=== PATIENT | male | born 1950 | race Caucasian/White ===

== ENCOUNTER → 2018-01-01 08:11 | Outpatient (CLI) | payer MEDICARE, OTHER, SELFPAY ==
[2018-01-01 09:21] LABS: Cholesterol 109 mg/dL (140-199); HDL Cholesterol 39 mg/dL (40-60); LDL Cholesterol Calculated 61 mg/dL (<100); Triglycerides 44 mg/dL (35-150)
== END ==
PROVIDERS: PCP Family Medicine; Visit Provider Family Medicine
DX: E78.00 Pure hypercholesterolemia, unspecified (principal)
CPT/HCPCS: 36415; 80061

== ENCOUNTER 2018-02-13 08:43 | Day surgery (SDC) | payer MEDICARE, OTHER, SELFPAY ==
[2018-02-13] VITALS (10 sets, daily range): BP systolic 99–125; BP diastolic 61–76; PULSE 52–80; RESP 12–16; TEMP 36–36.4; O2SAT 92–98; BMI 23.1
--- NOTE | 2018-02-13 | PATH_ITS ---
[facility] Accession Number: [id number] . 01 Material submitted: . AT CECUM . 02 Diagnosis: Cecum, Biopsies: Multiple fragments of tubulovillous adenoma. No evidence of malignancy or high-grade dysplasia. MRV/02/14/2018 . 02 Electronically signed: . Namrata Gutierrez MD, Pathologist NPI- [id number] . 01 Gross description: . Received in one formalin-filled container labeled with the patient's name and labeled at cecum, are multiple less than 0.1 cm to 0.3 cm portions of tissue, which are filtered, wrapped, and entirely submitted in one cassette. ([id number]) /FRR . 02 Pathologist provided ICD-10: D12.0 . 02 CPT . 812689 Performed at: 01 [facility] [address] [id number] MD Derrek Fitzgerald MD Phone: [phone] Performed at: 02 [facility] [address] [place] [id number] MD Hi Lantigua MD Phone: [phone]
--- NOTE | 2018-02-13 10:29 | PM.HP.1 ---
History of Present Illness Date Patient Seen: 02/13/18 Time Patient Seen: 10:29 Chief complaint: colonoscopy [id number] Narrative: 67-year-old gentleman here for his 1st screening colonoscopy. He denies any problems or symptoms related to the function of his GI tract. Patient History Medical History Prostate cancer (Acute) Family & Social History Family History: Reviewed 02/13/18 by Elisa Acosta MD Social History: household members spouse Tobacco & Substance use: Smoking Status Former smoker alcohol intake current Meds Home Medications Medication Instructions Recorded Confirmed Type aspirin 81 mg PO QDAY #0 04/09/17 02/13/18 History multivitamin [Multiple Vitamins] 1 tab PO QDAY #0 04/09/17 02/13/18 History ibuprofen [Advil] 200 mg PO PRN PRN #0 09/26/17 02/13/18 History simvastatin 40 mg PO HS #90 tab 10/02/17 02/13/18 Rx shingrix 0.5 ml IM ONCE #1 dose 12/26/17 12/26/17 Rx tamsulosin 0.4 mg capsule 0.8 mg PO QPM #0 cap 12/26/17 02/13/18 History Allergies Allergy/AdvReac Type Severity Reaction Status Date / Time No Known Allergies Allergy Uncoded 02/13/18 09:26 Review of Systems Review of Systems All systems reviewed & are unremarkable except as noted in HPI and below Exam Vital Signs (past 8 hours): - 02/13/18 09:12 Temperature 97.6 F Pulse Rate 80 Respiratory Rate 15 Blood Pressure 125/73 H Pulse Oximetry 98 Oxygen Delivery Method Room Air Narrative Exam Narrative: Very pleasant well-nourished well-developed gentleman in no distress HEENT: Normocephalic and atraumatic, pupils equal round reactive to light accommodation with anicteric sclera Lungs: Clear to auscultation bilaterally Heart: Regular rate and rhythm without murmur rub or gallop Abdomen: Soft, nontender, active bowel sounds Extremities: Warm and well perfused without edema Assessment & Plan Plan: Assessment/Plan Narrative: Very pleasant and generally healthy gentleman here for screening colonoscopy. We discussed the risks and benefits of the procedure the patient expressed a desire to continue into completed today.
[2018-02-13] MEDS: SODIUM CHLORIDE 0.9% 1,000 ML 200 ML IV (11:18)
--- NOTE | 2018-02-13 11:25 | PM.OP.1 ---
Operative Date/Time/Diagnoses Date of procedure: 02/13/18 Time of procedure: 11:25 Procedure & Clinicians Procedure: Colonoscopy to the cecum with polypectomy x2 Same procedure as scheduled: Yes Indications: No prior colonoscopy Surgeon: Elisa Acosta Click Yes if Unassisted: Yes Anesthesia Type: Sedation (Versed 10 mg; fentanyl 350 mcg) Operative Notes Findings: 1. Adequate prep 2. 1.5 cm flat polyp in the floor of the cecum-removed with snare and cautery and marked with Carole ink 3. 0.5 cm flat polyp just distal to the ileocecal valve. Removed with snare and cautery and submitted for pathology 4. Farr diverticulosis with large and small tics and false passages throughout the colon. The most severe disease is in the region of the sigmoid colon but there is significant disease throughout the colon 5. Grade 1-2 internal hemorrhoids Closure Type: not applicable Specimen(s): other (Two polyps removed with snare and cautery and retained for pathology) Procedure in detail: After obtaining informed consent, the patient was brought to the GI suite and placed in the left lateral decubitus position on the examination table. After placement of appropriate monitors, the patient was given incremental doses of Versed and Fentanyl until an appropriate level of sedation was achieved. A time out was held per SCOAP protocol. A digital rectal examination was performed and did not reveal any masses or obstructing lesions. The colonoscope was gently passed into the patient's anus and the entire colon navigated to the level of the cecum with minimal difficulty. Once in the cecum, the scope was withdrawn being sure to go before and beyond all mucosal folds and prominences and get an excellent examination. The findings are noted above. At the level of the rectal vault, the scope was retroflexed and the internal anal canal was examined. The scope was straightened and air aspirated from the colon. The instrument was removed from the patient's body and the procedure was concluded. The patient was allowed to awaken from sedation without difficulty and taken to the post-anesthesia care unit in good condition. Total sedation time 36 min Total withdrawal time 17 min Complications: none Condition: stable Disposition: PACU Plan for aftercare: 1. Discharge to home 2. We will contact you with pathology results 3. Plan for repeat colonoscopy in 6 months to assess for regrowth in the cecum.
[2018-02-13] MEDS: fentaNYL 250 MCG/5 ML INJ IV (11:35)
[2018-02-13] MEDS: MIDAZOLAM 5 MG/5 ML VIAL IV (11:36)
--- NOTE | 2018-02-13 13:03 | SUR.PHASEII ---
pt remains sleepy, at bedside, pt tolerating sips of coffee and juice
--- NOTE | 2018-02-13 14:34 | SUR.PHASEII ---
Patient awake and desiring discharge. Denies pain or difficulties. O2 sat 97%. Home at 1428.
== END 2018-02-13 14:28 | disposition home or self-care (01) ==
LOC: ENDO 08:44
PROVIDERS: PCP Family Medicine; Visit Provider Surgery
PROC: 0DJD8ZZ Inspection of Lower Intestinal Tract, Via Natural or Artificial Opening Endoscopic (ICD-10-PCS; CPT 45378; principal; 2018-02-13 09:45)
DX: Z12.11 Encounter for screening for malignant neoplasm of colon (principal); Z87.891 Personal history of nicotine dependence; K57.30 Diverticulosis of large intestine without perforation or abscess without bleeding; K64.1 Second degree hemorrhoids; D12.0 Benign neoplasm of cecum
CPT/HCPCS: 45385; 88305; 99152; 99153; J2250; J3010

== ENCOUNTER → 2018-04-23 09:41 | Outpatient (CLI) | payer MEDICARE, OTHER, SELFPAY ==
[2018-04-23 12:21] LABS: Prostate Specific Antigen 0.596 ng/mL (0.10-4.00)
== END ==
PROVIDERS: Visit Provider Radiology Radiation Oncology
DX: C61 Malignant neoplasm of prostate (principal)
CPT/HCPCS: 36415; 84153

== ENCOUNTER 2018-10-14 13:25 | Day surgery (SDC) | payer MEDICARE, OTHER, SELFPAY ==
--- NOTE | 2018-10-14 | PATH_ITS ---
[facility] Accession Number: [id number] . 01 Material submitted: . PART A: CECAL POLYP PART B: POLYP @100CM . 02 Diagnosis: A. Cecal Polyp: Tubular adenoma; negative for high-grade dysplasia. . B. Polyp at 100 cm: Tubular adenoma; negative for high-grade dysplasia. Please see comment. MRV/10/16/2018 . 02 Comment: Part B: There is a focus of adenomatous change / low-grade dysplasia / tubular adenoma present in an inflammatory-type polyp. No high-grade dysplasia is identified. . 02 Electronically signed: . Kristy Gutierrez MD, Pathologist NPI- [id number] . 01 Gross description: . Part A: CECAL POLYP: Received in formalin is 1 fragment(s) of dempsey, soft tissue measuring 0.6 x 0.3 x 0.2 cm submitted entirely in 1 cassette(s) Part B: POLYP @100CM: Received in formalin is 1 fragment(s) of dempsey, soft tissue measuring 1.4 x 0.6 x 0.4 cm which is inked, bisected and submitted entirely in 1 cassette(s) /CKI /CKI . 02 Pathologist provided ICD-10: K63.5 . 02 CPT . 181424, [id number] Performed at: 01 [facility] [address], [place], [place] [id number] MD Derrek Fitzgerald MD Phone: [phone] Performed at: 02 [facility] [address] [place], [place] [id number] MD Namrata Gutierrez MD Phone: [phone]
[2018-10-14] MEDS: SODIUM CHLORIDE 0.9% 1,000 ML 100 ML IV (13:44)
[2018-10-14 13:45] VITALS: BP 115/72; PULSE 71; RESP 16; TEMP 36; O2SAT 97; BMI 25.2
--- NOTE | 2018-10-14 14:58 | PM.HP.1 ---
History of Present Illness Date Patient Seen: 10/14/18 Time Patient Seen: 14:58 Chief complaint: colonoscopy [id number] Narrative: Mr. Bains is a pleasant 68-year-old gentleman who is well known to me from prior visits. I met him approximately 6 months ago at which time he had a colonoscopy. At that time he was noted to have a 1.5 cm tubulovillous adenoma in the floor of the cecum and a 2nd 5 mm lesion just distal to that 1. These were removed and marked with Carole ink. Pathology finally revealed tubulovillous adenoma without dysplasia or malignancy. He presents here today for surveillance colonoscopy to re-evaluate the size of excision. He denies any new problems or symptoms related to the function of his GI tract. He does report that he has changed his eating habits and lifestyle significantly to a more healthy version of his habits. Patient History Medical History Asthma (Acute) Constipation (Acute) Enlarged prostate (Acute) GERD (gastroesophageal reflux disease) (Acute) Hyperlipidemia (Acute) Impaired hearing (Acute) Impaired vision (Acute) Prostate cancer (Acute) Family History Mother Hypertension Heart disease Father Heart disease Son Heart disease Social History marital status: household members: spouse Smoking Status: Former smoker alcohol intake: current Family & Social History Family History Mother Hypertension Heart disease Father Heart disease Son Heart disease Social History: household members spouse Tobacco & Substance use: Smoking Status Former smoker alcohol intake current Meds Home Medications Medication Instructions Recorded Confirmed Type multivitamin [Multiple Vitamins] 1 tab PO QDAY #0 04/09/17 10/14/18 History ibuprofen [Advil] 200 mg PO PRN PRN #0 09/26/17 10/14/18 History simvastatin 40 mg PO HS #90 tab 10/02/17 10/14/18 Rx shingrix 0.5 ml IM ONCE #1 dose 12/26/17 10/07/18 Rx tamsulosin 0.4 mg capsule 0.8 mg PO QPM #0 cap 12/26/17 10/14/18 History cephalexin 500 mg capsule 500 mg PO BID 10 Days #20 cap 10/07/18 10/14/18 Rx Allergies Allergy/AdvReac Type Severity Reaction Status Date / Time No Known Allergies Allergy Uncoded 10/14/18 13:45 Review of Systems Review of Systems All systems reviewed & are unremarkable except as noted in HPI and below Exam Vital Signs (past 8 hours): - 10/14/18 13:45 Temperature 96.8 F L Pulse Rate 71 Respiratory Rate 16 Blood Pressure 115/72 Pulse Oximetry 97 Oxygen Delivery Method Room Air Narrative Exam Narrative: Pleasant and healthy-appearing gentleman in no distress HEENT: Normocephalic and atraumatic, pupils equal round react light accommodation with anicteric sclera Lungs: Clear to auscultation bilaterally Heart: Regular rate and rhythm without murmur rub or gallop Abdomen: Soft, nontender, active bowel sounds Extremities: Warm and well perfused and without edema Assessment & Plan Assessment & Plan narrative: Very pleasant 68-year-old gentleman here for surveillance colonoscopy. We discussed the risks and benefits of the procedure the patient expressed a desire to complete it today.
[2018-10-14] MEDS: MIDAZOLAM 5 MG/5 ML VIAL IV (15:05)
[2018-10-14] MEDS: fentaNYL 250 MCG/5 ML INJ IV (15:06)
--- NOTE | 2018-10-14 15:31 | PM.OP.1 ---
Operative Date/Time/Diagnoses Date of procedure: 10/14/18 Time of procedure: 15:31 Pre-op diagnosis: Personal history of large tubulovillous adenoma Post-op diagnosis: same Procedure & Clinicians Procedure: Colonoscopy to the cecum with polypectomy x2 Same procedure as scheduled: Yes Indications: Last colonoscopy 6 months ago with removal of a large flat tubulovillous adenoma Surgeon: Elisa Acosta Anesthesia Type: Sedation (Versed 5 mg; fentanyl 150 micro g) Operative Notes Findings: 1. Excellent prep 2. No regrowth of the polyp in the floor of the cecum. The tattoo was identified. 3. 1 mm, diminutive polypoid lesion in the floor of the cecum. Removed with cold forceps and retained for pathology 4. 2 cm long tubular appearing polyp at 100 cm from the anal verge. Very narrow stalk of only 3 or 4 mm. Removed with snare and cautery and retained for pathology. this polyp is in the area of the colon with a particularly large number of large and deep diverticula. 5. Farr diverticulosis as mentioned on previous exam 6. Grade 1-2 internal hemorrhoids Closure Type: not applicable Specimen(s): none sent (See list above) Estimated Blood Loss (mL): 1 Procedure in detail: After obtaining informed consent, the patient was brought to the GI suite and placed in the left lateral decubitus position on the examination table. After placement of appropriate monitors, the patient was given incremental doses of Versed and Fentanyl until an appropriate level of sedation was achieved. A time out was held per SCOAP protocol. A digital rectal examination was performed and did not reveal any masses or obstructing lesions. The colonoscope was gently passed into the patient's anus and the entire colon navigated to the level of the cecum with minimal difficulty. Once in the cecum, the scope was withdrawn being sure to go before and beyond all mucosal folds and prominences and get an excellent examination. The findings are noted above. at 100 cm from the anal verge we encountered a long narrow portion of tissue. With the tip of the tissue was noted to be tucked into a diverticulum and the base between 2 narrow diverticular openings. This was grasped and removed with snare and cautery. It was placed in a Yao net and removed from the colon and retained for pathology. At the level of the rectal vault, the scope was retroflexed and the internal anal canal was examined. The scope was straightened and air aspirated from the colon. The instrument was removed from the patient's body and the procedure was concluded. Total sedation time was 29 minutes Total withdrawal time was 13 minutes The patient was allowed to awaken from sedation without difficulty and taken to the post-anesthesia care unit in good condition. Complications: none Condition: stable Disposition: PACU Plan for aftercare: 1. Discharge to home 2. Plan for next colonoscopy in 1 year 3. We will contact you with pathology results and any additional recommendations
[2018-10-14 15:35] VITALS: BP 106/58; PULSE 65; RESP 16; TEMP 37; O2SAT 94
[2018-10-14 15:40] VITALS: BP 111/61; PULSE 66; RESP 16; TEMP 36.9; O2SAT 92
[2018-10-14 15:45] VITALS: BP 112/64; PULSE 69; RESP 14; TEMP 36.4; O2SAT 96
[2018-10-14 15:46] VITALS: BP 105/64; PULSE 66; RESP 15; TEMP 36.4; O2SAT 96
--- NOTE | 2018-10-14 16:11 | SUR.PHASEII ---
1550 Tolerating PO well, wants to go home. IV dc'd; clothes given.
== END 2018-10-14 16:05 | disposition home or self-care (01) ==
PROVIDERS: PCP Student in an Organized Health Care Education/Training Program; Visit Provider Surgery
PROC: 0DJD8ZZ Inspection of Lower Intestinal Tract, Via Natural or Artificial Opening Endoscopic (ICD-10-PCS; CPT 45378; principal; 2018-10-14 15:00)
DX: Z86.010 Personal history of colon polyps (principal); K57.30 Diverticulosis of large intestine without perforation or abscess without bleeding; K64.1 Second degree hemorrhoids; J45.909 Unspecified asthma, uncomplicated; E78.5 Hyperlipidemia, unspecified; Z85.46 Personal history of malignant neoplasm of prostate; K63.5 Polyp of colon
CPT/HCPCS: 45385; 45380; 88305; 99152; 99153; J2250; J3010

== ENCOUNTER → 2018-10-21 11:01 | Outpatient (CLI) | payer MEDICARE, OTHER, SELFPAY ==
[2018-10-21 15:17] LABS: Prostate Specific Antigen 0.362 ng/mL (0.10-4.00)
== END ==
PROVIDERS: PCP Student in an Organized Health Care Education/Training Program; Visit Provider Urology
DX: Z85.46 Personal history of malignant neoplasm of prostate (principal)
CPT/HCPCS: 36415; 84153

== ENCOUNTER → 2019-05-21 10:08 | Outpatient (CLI) | payer MEDICARE, OTHER, SELFPAY ==
[2019-05-21 11:37] LABS: Prostate Specific Antigen 0.485 ng/mL (0.10-4.00)
== END ==
PROVIDERS: PCP Student in an Organized Health Care Education/Training Program; Visit Provider Student in an Organized Health Care Education/Training Program
DX: Z85.46 Personal history of malignant neoplasm of prostate (principal)
CPT/HCPCS: 36415; 84153

== ENCOUNTER → 2019-12-10 09:37 | Outpatient (CLI) | payer MEDICARE, OTHER, SELFPAY ==
[2019-12-10 13:08] LABS: Prostate Specific Antigen Scrn 0.328 ng/mL (0.1-4.0)
== END ==
PROVIDERS: PCP Student in an Organized Health Care Education/Training Program; Referring Provider Student in an Organized Health Care Education/Training Program; Visit Provider Student in an Organized Health Care Education/Training Program
DX: Z12.5 Encounter for screening for malignant neoplasm of prostate (principal); Z85.46 Personal history of malignant neoplasm of prostate
CPT/HCPCS: 36415; G0103

== ENCOUNTER → 2019-12-28 15:18 | Outpatient (CLI) | payer MEDICARE, OTHER, SELFPAY ==
[2019-12-29 08:49] LABS: COVID19 Sendout Not Detected (Not Detect)
== END ==
PROVIDERS: PCP Student in an Organized Health Care Education/Training Program; Visit Provider Physician Assistant
DX: Z01.812 Encounter for preprocedural laboratory examination (principal)
CPT/HCPCS: 87635

== ENCOUNTER 2019-12-31 09:43 | Day surgery (SDC) | payer MEDICARE, OTHER, SELFPAY ==
--- NOTE | 2019-12-31 | PATH_ITS ---
[facility] Accession Number: [id number] . 01 Material submitted: . PART A: colon - COLON POLYP AT 40 CM PART B: colon - ASCENDING COLON POLYP . 02 Diagnosis: A. Colon, Polyp at 40 cm, Biopsy: Tubular adenoma. . B. Ascending Colon, Polyp, Biopsy: Tubular adenoma. MRV 01/01/2020 1013 Local . 02 Electronically signed: . Namrata Gutierrez MD, Pathologist NPI- [id number] . 01 Gross description: . Part A: COLON POLYP AT 40 CM: Received in formalin are 2 fragment(s) of dempsey, soft tissue measuring 0.1 x 0.1 x 0.1 cm to 0.3 x 0.1 x 0.1 cm submitted entirely in 1 cassette(s) Part B: ASCENDING COLON POLYP: Received in formalin are 2 fragment(s) of dempsey, soft tissue measuring 0.1 x 0.1 x 0.1 cm to 0.6 x 0.6 x 0.5 cm submitted entirely in 1 cassette(s) /SY 12/31/20192045 Local . 02 Pathologist provided ICD-10: D12.6, D12.2 . 02 CPT . 092236, 680691 Performed at: [address] [facility] [address], [place], [place] [id number] MD Derrek Fitzgearld MD Phone: [phone] Performed at: 02 [facility] [address] [place], [place] [id number] MD Namrata Gutierrez MD Phone: [phone]
[2019-12-31 10:06] VITALS: BP 111/71; PULSE 76; RESP 16; TEMP 36.4; O2SAT 98; BMI 23.3
[2019-12-31] MEDS: LACTATED RINGERS 1,000 ML 200 ML IV (10:11)
[2019-12-31] MEDS: fentaNYL 250 MCG/5 ML INJ IV (10:52)
[2019-12-31] MEDS: MIDAZOLAM 5 MG/5 ML VIAL IV (10:53)
--- NOTE | 2019-12-31 10:53 | PM.HP.1 ---
History of Present Illness History of Present Illness Date Patient Seen: 12/31/19 Time Patient Seen: 10:40 Chief complaint: [id number] Narrative: The patient is a gentleman here for a colonoscopy. He has had a colonoscopy yearly for the last 2 years because of a large flat lesions seen in cecum. He is here for an additional exam to make sure there is now no further lesions in the region. Patient History Medical History (Updated 12/31/19 @ 10:54 by Jose Lau MD) Asthma (Acute) Constipation (Acute) Enlarged prostate (Acute) GERD (gastroesophageal reflux disease) (Acute) Hyperlipidemia (Acute) Impaired hearing (Acute) Impaired vision (Acute) Prostate cancer (Acute) Family & Social History Family History Mother Hypertension Heart disease Father Heart disease Son Heart disease Social History: household members spouse Tobacco & Substance use: Smoking Status Former smoker alcohol intake never Substance Use Type does not use Meds Home Medications and Allergies Home Medications Medication Instructions Recorded Confirmed Type multivitamin [Multiple Vitamins] 1 tab PO QDAY #0 04/09/17 12/31/19 History ibuprofen [Advil] 200 mg PO PRN PRN #0 09/26/17 12/31/19 History simvastatin 40 mg tablet 40 mg PO HS #90 tab 07/24/19 12/31/19 Rx Allergies Allergy/AdvReac Type Severity Reaction Status Date / Time No Known Allergies Allergy Uncoded 12/31/19 10:04 Review of Systems Review of Systems ROS: Yes All systems reviewed with the patient and are negative except as otherwise documented Exam Vital Signs (past 8 hours): - 12/31/19 10:06 Temperature 97.6 F Pulse Rate 76 Respiratory Rate 16 Blood Pressure 111/71 Pulse Oximetry 98 Oxygen Delivery Method Room Air Narrative Exam Narrative: No apparent distress. Lungs are clear no rales or rhonchi heart regular rate and rhythm without murmur gallop. Abdomen is soft nontender without mass reducible umbilical hernia that is longstanding alert and oriented x3 Assessment & Plan Assessment & Plan narrative: Patient with history of a large flat lesion is cecum. Additional polyp was removed from the area last year and an additional study was recommended 1 year to make sure nothing has grown back. I have discussed the procedure and the rationale with the patient including risks of bleeding, perforation which would necessitate a major operation, failure to find remove all lesions and the potential to tattoo. They appeared to understand and wished to proceed.
--- NOTE | 2019-12-31 10:56 | PM.PREOP ---
Pre-operative Note COVID-19 COVID-19 status: Negative Result date/Date tested (Pos, Neg/Pending): 12/28/19 Interval Note History & Physical reviewed/Exam performed by Physician: Yes Changes to H&P: No ASA Class (for procedural sedation): II
[2019-12-31 11:46] VITALS: BP 107/63; PULSE 72; RESP 12; TEMP 36.4; O2SAT 96
--- NOTE | 2019-12-31 11:46 | PM.OP.ENDO ---
Operative Date/Time/Diagnoses Date of procedure: 12/31/19 Time of procedure: 11:46 Pre-op diagnosis: History of polyps Post-op diagnosis: same (Polyps were found) Procedure & Clinicians Study performed: Colonoscopy with hot snare polypectomy and cold biopsy Same procedure as scheduled: Yes Indications: History of large polyps. Brought back after 1 year to make sure there was no regrowth Surgeon: Jose Lau Procedure Notes SCOAP/Timeout: Performed Procedure in detail: The patient was placed in the left lateral decubitus position and underwent IV sedation directed by the surgeon consisting of fentanyl and Versed. Digital exam was unremarkable except the prostate area was flat. Patient also had a thrombosed external hemorrhoid with localized edema. The scope was inserted and advanced through the rectum into the sigmoid, descending, transverse, and ascending colon. The patient had pancolonic diverticulosis with a heaviest concentration in the sigmoid. The colon was quite tortuous and redundant. It was quite difficult to get to the ascending colon. The patient had to be repositioned pressure applied the scope backed out and forward repeatedly. On the way in there was a small polyp at 30 cm and this was biopsied and completely removed.. The cecum was reached identified by the ileocecal valve and the appendiceal opening. I had an excellent view of the cecum and identified the prior tattoo. There were no cecal lesions seen. I had noted a greater than 1 cm polyp in the ascending colon in on the way out I used a hot snare to remove it. The scope was gradually brought out. No other Polyps were found. The scope ultimately was retroflexed in the rectum. The appearance was remarkable for internal hemorrhoids. The scope was removed and the patient tolerated the procedure well. Prep was good. Scope withdrawal time: 8 minutes(11 total) Sedation minutes: 44 Findings: diverticulosis (Pancolonic) and polyp Specimen(s): other (Polyps) Complications: none Post-procedure Recommendations: Colonscopy in 3 years Follow up: as needed Disposition: PACU
[2019-12-31 11:51] VITALS: BP 111/73; PULSE 75; RESP 12; O2SAT 96
[2019-12-31 11:56] VITALS: BP 120/76; PULSE 78; RESP 16; O2SAT 95
[2019-12-31 11:58] VITALS: BP 109/69; PULSE 73; RESP 16; O2SAT 97
== END 2019-12-31 12:12 | disposition home or self-care (01) ==
PROVIDERS: PCP Student in an Organized Health Care Education/Training Program; Referring Provider Specialist; Visit Provider Specialist
PROC: 0DJD8ZZ Inspection of Lower Intestinal Tract, Via Natural or Artificial Opening Endoscopic (ICD-10-PCS; CPT 45378; principal; 2019-12-31 10:45)
DX: Z12.11 Encounter for screening for malignant neoplasm of colon (principal); Z86.010 Personal history of colon polyps; J45.909 Unspecified asthma, uncomplicated; K21.9 Gastro-esophageal reflux disease without esophagitis; E78.5 Hyperlipidemia, unspecified; K57.30 Diverticulosis of large intestine without perforation or abscess without bleeding; D12.6 Benign neoplasm of colon, unspecified; D12.2 Benign neoplasm of ascending colon
CPT/HCPCS: 45385; 45380; 99152; 99153; J2250; J3010

== ENCOUNTER → 2021-01-02 10:45 | Outpatient (CLI) | payer MEDICARE, OTHER, SELFPAY ==
[2021-01-02 11:26] LABS: Blood Urea Nitrogen 14 mg/dL (9-20); Estimated Glomerular Filt Rate > 60.0 mL/min (>60)
[2021-01-02 11:56] LABS: Prostate Specific Antigen 0.642 ng/mL (0.10-4.00)
== END ==
PROVIDERS: PCP Student in an Organized Health Care Education/Training Program; Referring Provider Student in an Organized Health Care Education/Training Program; Visit Provider Student in an Organized Health Care Education/Training Program
DX: N40.1 Benign prostatic hyperplasia with lower urinary tract symptoms (principal); Z85.46 Personal history of malignant neoplasm of prostate
CPT/HCPCS: 36415; 82565; 84153; 84520

== ENCOUNTER → 2022-01-17 13:53 | Outpatient (CLI) | payer MEDICARE, OTHER, SELFPAY ==
[2022-01-17 14:41] LABS: BUN Creatinine Ratio 22.1 (6-22); Blood Urea Nitrogen 19 mg/dL (9-20); Calcium 9.1 mg/dL (8.4-10.2); Carbon Dioxide 27 mmol/L (22-32); Chloride 105 mmol/L (98-107); Cholesterol 135 mg/dL (140-199); Estimated Glomerular Filt Rate > 60 mL/min (>60); Glucose 96 mg/dL (80-110); HDL Cholesterol 37 mg/dL (40-60); HEMOLYSIS < 15 (0-50); LDL Cholesterol Calculated 80 mg/dL (<100); Sodium 140 mmol/L (137-145); Triglycerides 91 mg/dL (35-150)
[2022-01-17 15:07] LABS: Prostate Specific Antigen 1.05 ng/mL (0.10-4.00)
== END ==
PROVIDERS: PCP Student in an Organized Health Care Education/Training Program; Referring Provider Student in an Organized Health Care Education/Training Program; Visit Provider Student in an Organized Health Care Education/Training Program
DX: E78.00 Pure hypercholesterolemia, unspecified (principal); Z85.46 Personal history of malignant neoplasm of prostate; Z79.1 Long term (current) use of non-steroidal anti-inflammatories (NSAID)
CPT/HCPCS: 36415; 80048; 80061; 84153

== ENCOUNTER → 2023-01-21 09:43 | Outpatient (CLI) | payer MEDICARE, OTHER, SELFPAY ==
[2023-01-21 11:13] LABS: Add Manual Diff / Slide Review NO; Basophils Absolute Auto 0 /uL (0-100); Basophils Percent Auto 0.8 % (0-2); Eosinophils Absolute Auto 200 /uL (0-450); Eosinophils Percent Auto 3.3 % (2-4); Hematocrit 43.1 % (41-53); Hemoglobin 14.9 g/dL (13.5-17.5); Lymphocytes Absolute Auto 1900 /uL (1100-4500); Lymphocytes Percent Auto 33.9 % (25-40); Mean Corpuscular HGB Conc 34.4 % (30-36); Mean Corpuscular Hemoglobin 29.7 PG (26-34); Mean Corpuscular Volume 86.3 fL (80-100); Monocytes Absolute Auto 400 /uL (0-900); Monocytes Percent Auto 8.1 % (3-14); Neutrophils Absolute Auto 3000 /uL (1500-7000); Neutrophils Percent Auto 53.9 % (50-75); Platelet Count 200 X10^3/uL (150-400); Red Cell Distribution Width 12.8 % (11.6-14.8); White Blood Cell Count 5.5 X10^3/uL (4.5-11.0)
[2023-01-21 11:18] LABS: Alanine Aminotransferase 26 IU/L (<50); Albumin 4.3 g/dL (3.5-5.0); Albumin Globulin Ratio 1.5 (1.0-2.8); Alkaline Phosphatase 63 U/L (38-126); Aspartate Aminotransferase 31 IU/L (17-59); BUN Creatinine Ratio 22.2 (6-22); Bilirubin Total 0.8 mg/dL (0.2-1.3); Blood Urea Nitrogen 16 mg/dL (9-20); Calcium 8.7 mg/dL (8.4-10.2); Carbon Dioxide 32 mmol/L (22-32); Chloride 102 mmol/L (98-107); Cholesterol 122 mg/dL (140-199); Estimated Glomerular Filt Rate > 60 mL/min (>60); Globulin 2.8 g/dL (1.7-4.1); Glucose 89 mg/dL (80-110); HDL Cholesterol 36 mg/dL (40-60); HEMOLYSIS 21 (0-50); LDL Cholesterol Calculated 62 mg/dL (<100); Potassium 4.7 mmol/L (3.4-5.1); Sodium 139 mmol/L (137-145); Total Protein 7.1 g/dL (6.3-8.2); Triglycerides 122 mg/dL (35-150)
[2023-01-21 11:48] LABS: Prostate Specific Antigen 1.19 ng/mL (0.10-4.00)
[2023-01-21 11:51] LABS: Vitamin D 25 Hydroxy (D3) 44.8 ng/mL (30.0-100.0)
[2023-01-21 15:56] LABS: Hep C Virus Ab w/Reflex Quant NEGATIVE s/c (NEGATIVE)
== END ==
PROVIDERS: PCP Student in an Organized Health Care Education/Training Program; Referring Provider Student in an Organized Health Care Education/Training Program; Visit Provider Student in an Organized Health Care Education/Training Program
DX: E78.00 Pure hypercholesterolemia, unspecified (principal); Z85.46 Personal history of malignant neoplasm of prostate; Z79.899 Other long term (current) drug therapy; R59.0 Localized enlarged lymph nodes; Z79.1 Long term (current) use of non-steroidal anti-inflammatories (NSAID); Z11.59 Encounter for screening for other viral diseases; E55.9 Vitamin D deficiency, unspecified
CPT/HCPCS: 36415; 80053; 80061; 82306; 84153; 85025; 86803

== ENCOUNTER 2023-05-14 08:28 | Day surgery (SDC) | payer MEDICARE, OTHER, SELFPAY ==
[2023-05-14] VITALS (7 sets, daily range): BP systolic 112–143; BP diastolic 76–96; PULSE 56–79; RESP 14–20; TEMP 36.3–36.9; O2SAT 94–99; BMI 25.1
[2023-05-14] MEDS: LACTATED RINGERS 1,000 ML 42 ML IV (08:49)
--- NOTE | 2023-05-14 09:50 | PM.HP.1 ---
History of Present Illness History of Present Illness Date Patient Seen: 05/14/23 Time Patient Seen: 09:50 Chief complaint: SDC Narrative: 72-year-old man personal history colonic polyps here for screening colonoscopy. Last colonoscopy 2020 notable for polyps. Currently no abdominal pain unintentional weight loss blood per rectum. No family history of intestinal malignancy. [facility] Medical History Apnea Snoring Impaired hearing Impaired vision Enlarged prostate Constipation GERD (gastroesophageal reflux disease) Hyperlipidemia Asthma Prostate cancer Family History Mother Hypertension Heart disease Father Heart disease Son Heart disease Social History marital status: household members: spouse Smoking Status: Former smoker alcohol intake: current Meds Home Medications and Allergies Home Medications Medication Instructions Recorded Confirmed Type multivitamin (Multiple Vitamins 1 tab PO QDAY ##0 04/09/17 05/14/23 History tablet) ibuprofen 200 mg tablet (Advil) 200 mg PO PRN PRN PAIN ##0 09/26/17 05/14/23 History naproxen sodium 220 mg tablet 220 mg PO PRN Pain 11/15/22 02/05/23 History simethicone 125 mg capsule (Gas-X 250 mg PO DAILY Gas 11/15/22 05/14/23 History Extra Strength) simvastatin 40 mg tablet 40 mg PO HS #90 tabs 11/15/22 05/14/23 Rx tamsulosin 0.4 mg capsule 0.4 mg PO BEDTIME #90 caps 11/15/22 05/14/23 Rx triamcinolone acetonide 0.1 % topical 05/14/23 History topical ointment Allergies Allergy/AdvReac Type Severity Reaction Status Date / Time No Known Allergies Allergy Uncoded 05/14/23 08:48 Exam Vital Signs (past 8 hours): - 05/14/23 09:00 Temperature 97.3 F L Pulse Rate 79 Respiratory Rate 17 Blood Pressure 141/96 H Pulse Oximetry 99 Oxygen Delivery Method Room Air Oxygen Delivery Method Room Air Narrative Exam Narrative: General adult man alert oriented no acute distress Chest nonlabored respiration Extremities warm well perfused Assessment & Plan Assessment and plan (1) Personal history of colonic polyps: Status: Acute Assessment & Plan narrative: The patient requires colorectal screening and colonoscopy is recommended. Technical details were discussed. Risks, benefits, alternatives explained. Risks including but not limited to myocardial infarction, aspiration, bleeding, pain, missed lesion, incomplete examination, need for further radiographic studies, colonic perforation, and need for major abdominal surgery were discussed. All questions were answered to their satisfaction, and they are in agreement with this plan.
--- NOTE | 2023-05-14 09:52 | P.OP.COLON_ITS ---
Operative Date/Time/Diagnoses Date of procedure: 05/14/23 Time of procedure: 09:52 Pre-op diagnosis: Personal history of colonic polyps Post-op diagnosis: same Procedure & Clinicians Study performed: Sigmoidoscopy Same procedure as scheduled: Yes Indications: Colorectal screening Personal history of colonic polyp Surgeon: Gigi Bell Procedure Notes Procedure in detail: The history and physical was performed/updated and the patient is ASA class is 2. The procedure was discussed in detail with the patient. Potential risks complications including infection, bleeding, missed diagnosis, perforation, need for surgery, and were explained. Their questions were answered and informed consent was obtained. Patient was brought to the procedure room and placed standard monitoring equipment. The patient's vital signs were monitored continuously throughout the entire procedure. Prior to starting time-out was performed. The patient was placed in the left lateral recumbent position. Procedural sedation was administered by anesthesia. Examination began with a thorough inspection of the perianal area there was no evidence of fissures, fistulae, external hemorrhoids or cutaneous malignancy. The colonoscopy scope was then placed into the anal canal and was advanced forward. We reach the ascending colon but could not proceed further. Scope stiffener was placed external pressure and repositioning of the patient but despite these measures colon was quite tortuous and no further safe progress could be made. The patient tolerated the procedure well. They will be discharged once criteria are met. Prep was of poor quality. The withdrawl time was 7 minutes. FINDINGS * Extensive diverticulosis * No masses or polyps * Tortuous colon Specimen(s): none sent Impression: Incomplete colonoscopy. Tortuous colon Post-procedure Plan for aftercare: Barium enema Disposition: same day surgery
== END 2023-05-14 11:01 | disposition home or self-care (01) ==
PROVIDERS: PCP Family Medicine; Referring Provider Surgery; Visit Provider Surgery
PROC: 0DJD8ZZ Inspection of Lower Intestinal Tract, Via Natural or Artificial Opening Endoscopic (ICD-10-PCS; CPT 45378; principal; 2023-05-14 09:45)
DX: Z12.11 Encounter for screening for malignant neoplasm of colon (principal); Z86.010 Personal history of colon polyps; K57.30 Diverticulosis of large intestine without perforation or abscess without bleeding; Z53.09 Procedure and treatment not carried out because of other contraindication
CPT/HCPCS: G0105; J2704

== ENCOUNTER → 2023-06-05 12:35 | Outpatient (CLI) | payer MEDICARE, OTHER, SELFPAY ==
--- NOTE | 2023-06-05 12:36 | DI.RAD.S_ITS ---
PROCEDURE: [place] BARIUM ENEMA W AIR CONTRAST INDICATIONS: Incomplete colonoscopy COMPARISON: None. FINDINGS: KUB: Pre-procedural foreman or supervisor and operator film demonstrates a normal bowel gas pattern. No suspicious abdominal calcifications. Visualized solid organ contours are normal in size. No suspicious bony lesions. Colon: There is adequate air-contrast opacification from the rectum to the cecum. Scattered diverticulosis in the right colon and transverse colon with severe diverticulosis in the left colon and sigmoid colon. No strictures, ulcers, polyps, or masses are seen. The appendix is opacified and appears normal. Haustral folds are normal in thickness throughout. No diverticula. IMPRESSION: 1. Extensive diverticulosis most severe in the left colon and sigmoid colon. 2. No strictures, ulcers, polyps, or masses are identified. Dictated by: Stefan Thompson M.D. on 06/05/2023 at 16:04 Approved by: Stefan Thompson M.D. on 06/05/2023 at 16:07
== END ==
PROVIDERS: PCP Family Medicine; Referring Provider Surgery; Visit Provider Surgery
DX: Z12.11 Encounter for screening for malignant neoplasm of colon (principal); K57.30 Diverticulosis of large intestine without perforation or abscess without bleeding
CPT/HCPCS: 74280

== ENCOUNTER 2023-10-08 09:55 | Emergency (ER) | payer MEDICARE, OTHER, SELFPAY ==
[2023-10-08] VITALS (11 sets, daily range): BP systolic 100–125; BP diastolic 52–67; PULSE 58–68; RESP 14; TEMP 36.8; O2SAT 94–99; BMI 27.4
--- NOTE | 2023-10-08 10:23 | DI.CT.S_ITS ---
PROCEDURE: CT ABDOMEN PELVIS W CON INDICATIONS: abd pain, h/o divertic, distended. TECHNIQUE: After the administration of intravenous contrast, axial sections acquired from the lung bases to the pubic symphysis. Coronal and sagittal reformats were performed. For radiation dose reduction, the following was used: automated exposure control, adjustment of mA and/or kV according to patient size. COMPARISON: [facility], [place], [place] BARIUM ENEMA W AIR CONTRAST, 06/05/2023, 14:07. barium enema [facility], [place], ABDOMEN/PELVIS WITH CONTRAST, 10/07/2017, 8:21. FINDINGS: Image quality: Diagnostic. Lower Chest: Lung bases are clear. Heart is normal size. There is a large hiatal hernia. ABDOMEN: Liver: No solid mass. Gallbladder: No radiopaque gallstones or wall thickening. Biliary ducts: No biliary dilation. Pancreas: No ductal dilation. Spleen: Size is within normal limits. Adrenal Glands: No adrenal nodules. Kidneys and Ureters: No hydronephrosis. No solid mass. No complex renal cystic lesion which requires follow up. Stomach and Bowel: Normal colonic caliber, without significant wall thickening. The appendix is thin walled and gas filled. There are innumerable large colonic diverticular outpouchings throughout the colon. No mucosal thickening or pericolonic fat stranding. Within many of these diverticular outpouchings, inspissated high-density mater dated June 05, 2023. Marked streak artifact is noted. This may represent inspissated oral contrast from the prior barium enema dated June 05, 2023. A large gas-filled diverticulum is redemonstrated within the posterior pelvis (series 2/image 72). This was visualized on the CT dated October 07, 2017. Peritoneum: No abnormal intraperitoneal fluid. No free air. Ventral Wall: There is a fat containing umbilical hernia. Abdominal Nodes: No retroperitoneal or mesenteric adenopathy by size criteria. Vessels: Aorta and inferior vena cava are normal in size. PELVIS: Pelvic Organs: Unremarkable. Bladder: No bladder wall thickening, accounting for underdistention. Pelvic Nodes: No enlarged lymph nodes. Miscellaneous: No inguinal hernias are seen. Bones: No aggressive osseous abnormality. IMPRESSION: 1. Florid colonic diverticulosis with multiple regions of inspissated oral contrast within large diverticula. No findings to suggest acute diverticulitis or perforation. 2. Normal appendix. Dictated by: Ada Man M.D. on 10/08/2023 at 11:50 Approved by: Ada Man M.D. on 10/08/2023 at 11:55
[2023-10-08 10:30] LABS: Lactate (Lactic Acid) 0.9 mmol/L (0.7-2.1)
[2023-10-08 10:31] LABS: Add Manual Diff / Slide Review NO; Alanine Aminotransferase 25 IU/L (<50); Albumin 3.9 g/dL (3.5-5.0); Albumin Globulin Ratio 1.3 (1.0-2.8); Alkaline Phosphatase 59 U/L (38-126); Aspartate Aminotransferase 32 IU/L (17-59); BUN Creatinine Ratio 23.4 (6-22); Basophils Absolute Auto 0 /uL (0-100); Basophils Percent Auto 0.3 % (0-2); Bilirubin Total 0.8 mg/dL (0.2-1.3); Blood Urea Nitrogen 18 mg/dL (9-20); Calcium 8.7 mg/dL (8.4-10.2); Carbon Dioxide 25 mmol/L (22-32); Chloride 107 mmol/L (98-107); Eosinophils Absolute Auto 0 /uL (0-450); Eosinophils Percent Auto 0.1 % (2-4); Estimated Glomerular Filt Rate > 60 mL/min (>60); Glucose 128 mg/dL (80-110); HEMOLYSIS 17 (0-50); Hemoglobin 14.6 g/dL (13.5-17.5); Lipase 85 U/L (23-300); Lymphocytes Absolute Auto 500 /uL (1100-4500); Lymphocytes Percent Auto 7.2 % (25-40); Mean Corpuscular HGB Conc 34.7 % (30-36); Mean Corpuscular Hemoglobin 30.2 PG (26-34); Mean Corpuscular Volume 86.9 fL (80-100); Monocytes Absolute Auto 500 /uL (0-900); Monocytes Percent Auto 6.8 % (3-14); Neutrophils Absolute Auto 5900 /uL (1500-7000); Neutrophils Percent Auto 85.6 % (50-75); Platelet Count 177 X10^3/uL (150-400); Red Blood Cell Count 4.83 X10^6/uL (4.5-5.9); Red Cell Distribution Width 13.1 % (11.6-14.8); Sodium 138 mmol/L (137-145); Total Protein 6.9 g/dL (6.3-8.2); White Blood Cell Count 6.9 X10^3/uL (4.5-11.0)
[2023-10-08 10:47] LABS: Procalcitonin 2.25 ng/mL (<0.5)
--- NOTE | 2023-10-08 11:11 | ED.GENADULT ---
HPI - General Adult General Chief complaint: Abdominal Pain Stated complaint: Abd Pain Time Seen by Provider: 10/08/23 10:15 Source: patient Mode of arrival: Wheelchair History of Present Illness HPI narrative: 73-year-old gentleman with a history of hyperlipidemia prior history of diverticulitis comes in complaining of chills with rigors for the last 24 hours. Responds nicely to Alleve and Tylenol but does return as as medications wear off. He has some mild abdominal bloating but is not complaining of significant cough, sore throat, abdominal pain, dysuria, flank pain. He notes that with his prior history of diverticulitis he had chills rigors and bloating as he is noting today Related Data Home Medications Medication Instructions Recorded Confirmed multivitamin (Multiple Vitamins 1 tab PO QDAY ##0 04/09/17 10/08/23 tablet) ibuprofen 200 mg tablet (Advil) 200 mg PO PRN PRN PAIN ##0 09/26/17 10/08/23 naproxen sodium 220 mg tablet 220 mg PO BID PRN Pain (Scale 11/15/22 10/08/23 Score 4-6) acetaminophen 500 mg tablet 1,000 mg PO Q6H PRN pain/fever 10/08/23 10/08/23 Previous Rx's Medication Instructions Recorded simvastatin 40 mg tablet 40 mg PO HS #90 tabs 11/15/22 Allergies Allergy/AdvReac Type Severity Reaction Status Date / Time No Known Drug Allergies Allergy Verified 10/08/23 10:15 Review of Systems Review of Systems Narrative: Pertinent positive and negative findings as per HPI Patient History Medical History Apnea Snoring Impaired hearing Impaired vision Enlarged prostate Constipation GERD (gastroesophageal reflux disease) Hyperlipidemia Asthma Prostate cancer Family History Mother Hypertension Heart disease Father Heart disease Son Heart disease Social History marital status: household members: spouse Smoking Status: Former smoker alcohol intake: current Smoking Status: Former smoker alcohol intake frequency: a few times a week Substance Use Type: does not use Exam Initial Vital Signs Initial Vital Signs: Vital Signs Temperature 98.3 F 10/08/23 09:55 Pulse Rate 64 10/08/23 09:55 Respiratory Rate 14 10/08/23 09:55 Blood Pressure 117/57 L 10/08/23 09:55 Pulse Oximetry 99 10/08/23 09:55 Oxygen Delivery Method Room Air 10/08/23 09:55 General: Healthy appearing, in no acute distress. Able to give a complete and coherent history. Well-nourished well-developed HEENT: Moist mucous membranes, normal sclera with reactive pupils, Neck: No JVD, supple Respiratory: Lungs are clear to auscultation, no wheezing no rales no rhonchi. Full and symmetrical air movement Cardiac: Regular rate and rhythm no murmurs no bruits Abdomen: Soft, nontender, mild distention, hyperactive bowel tones, no flank pain Skin: Warm and dry, no rashes Neurologic: Grossly neurologically intact with no obvious asymmetries or abnormalities Extremities: No trauma, well perfused, no lower extremity edema Psych: Cooperative, appropriate insight and affect Course Orders Ordered: ED Orders 10/08/23 10:10 Complete Blood Count AUTO DIFF Stat Comprehensive Metabolic Panel Stat Lactate (Lactic Acid) Stat Lipase Stat Procalcitonin Stat 10/08/23 10:12 EKG-12 Lead Stat 10/08/23 10:23 CT abdomen pelvis w con Stat 10/08/23 11:23 Urine Microscopic Stat 10/08/23 11:42 Blood Culture Stat Ondansetron HCl (Ondansetron 4 Mg/2 Ml Inj) 4 mg IV NOW PRN PRN Reason: Nausea And Vomiting Ondansetron HCl (Ondansetron 4 Mg Odt) 4 mg PO NOW PRN PRN Reason: Nausea And Vomiting Discontinued Medications Sodium Chloride (Normal Saline 0.9%) 1,000 mls @ 1,000 mls/hr IV BOLUS ONE Stop: 10/08/23 12:26 Last Admin: 10/08/23 11:38 Dose: 1,000 mls/hr Documented By: JANESSA Piperacillin Sod/Tazobactam (Sod 4.5 gm/ Sodium Chloride) 100 mls @ 200 mls/hr IV NOW ONE Stop: 10/08/23 11:28 Last Infusion: 10/08/23 12:45 Dose: Infused Documented By: Admin: 10/08/23 11:39 Dose: 200 mls/hr Documented By: JANESSA Vital Signs Vital signs: Vital Signs - 8 hr 10/08/23 09:55 10/08/23 10:39 10/08/23 11:10 Temperature 98.3 F Pulse Rate 64 61 61 Respiratory Rate 14 Blood Pressure 117/57 L Pulse Oximetry 99 94 97 Oxygen Delivery Method Room Air Room Air 10/08/23 11:11 10/08/23 11:11 Temperature Pulse Rate 61 Respiratory Rate Blood Pressure 110/58 L Pulse Oximetry 96 Oxygen Delivery Method Medical Decision Making Lab Data 10/08/23 10:10 10/08/23 10:10 Labs: Lab Results 10/08/23 10/08/23 Range/Units 10:10 11:23 WBC 6.9 (4.5-11.0) X10^3/uL RBC 4.83 (4.5-5.9) X10^6/uL Hgb 14.6 (13.5-17.5) g/dL Hct 42.0 (41-53) % MCV 86.9 (80-100) fL MCH 30.2 (26-34) PG MCHC 34.7 (30-36) % RDW 13.1 (11.6-14.8) % Plt Count 177 (150-400) X10^3/uL Neut % (Auto) 85.6 H (50-75) % Lymph % (Auto) 7.2 L (25-40) % Jackson % (Auto) 6.8 (3-14) % Eos % (Auto) 0.1 L (2-4) % Baso % (Auto) 0.3 (0-2) % Neut # (Auto) 5900 (6776-5206) /uL Lymph # (Auto) 500 L (3243-4312) /uL Jackson # (Auto) 500 (0-900) /uL Eos # (Auto) 0 (0-450) /uL Baso # (Auto) 0 (0-100) /uL Sodium 138 (137-145) mmol/L Potassium 4.0 (3.4-5.1) mmol/L Chloride 107 (98-107) mmol/L Carbon Dioxide 25 (22-32) mmol/L BUN 18 (9-20) mg/dL Creatinine 0.77 (0.66-1.25) mg/dL Estimated GFR > 60 (>60) mL/min BUN/Creatinine Ratio 23.4 H (6-22) Glucose 128 H (80-110) mg/dL Lactate 0.9 (0.7-2.1) mmol/L Calcium 8.7 (8.4-10.2) mg/dL Total Bilirubin 0.8 (0.2-1.3) mg/dL AST 32 (17-59) IU/L ALT 25 (<50) IU/L Alkaline Phosphatase 59 (38-126) U/L Total Protein 6.9 (6.3-8.2) g/dL Albumin 3.9 (3.5-5.0) g/dL Globulin 3.0 (1.7-4.1) g/dL Albumin/Globulin Ratio 1.3 (1.0-2.8) Lipase 85 (23-300) U/L Procalcitonin 2.25 H (<0.5) ng/mL Urine RBC 0-1/hpf (0-5/HPF) Urine WBC 0-1/hpf (0-5/HPF) Ur Squamous Epith Cells None seen (0-5/HPF) Urine Bacteria None seen (None) Ur Culture Indicated? Cult not indicated Vol Urine Centrifuged 10ml (spun) Urine Dip Bedside Urine Glucose Negative Bedside Urine Bilirubin - Negative Bedside Urine Ketone - Negative Urine Specific [place] 1.010 Bedside Urine Occult Blood +/- Bedside Urine pH 6.0 Bedside Urine Protein - Negative Bedside Urine Urobilinogen - Negative Bedside Urine Nitrite - Negative Bedside Urine Leukocytes - Negative Esterase Point of care testing: Urine Dip Bedside Urine Glucose Negative Bedside Urine Bilirubin - Negative Bedside Urine Ketone - Negative Urine Specific [place] 1.010 Bedside Urine Occult Blood +/- Bedside Urine pH 6.0 Bedside Urine Protein - Negative Bedside Urine Urobilinogen - Negative Bedside Urine Nitrite - Negative Bedside Urine Leukocytes - Negative Esterase [facility] Narrative Medical decision making narrative: CC: Chills, rigors, abdominal distention Complicating co-morbidities: Prior history prostate cancer, hyperlipidemia, diverticulitis Data collected from: patient, Medical records reviewed: [facility] medical records with screening colonoscopy notes are reviewed no other records are immediately available Differential considered: Diverticulitis, bowel obstruction, pyelonephritis or urinary tract infection, sepsis Exam documented above, pertinent findings include: Exam is relatively benign, patient did take a g of Tylenol just prior to arrival. He does not have significant amount of abdominal pain he does have hyperactive bowel tones and mild distention Lab Test results independently reviewed as above. Pertinent findings: CBC is unremarkable with white count at 6.9. Neutrophils are elevated at 85.6. No anemia Chemistries are reassuring Procalcitonin is significantly elevated at 2.25 Lactic acid is not elevated Independently reviewed EKG: Sinus rhythm at a rate of 58, normal intervals, normal axis, no acute ischemic changes Imaging studies independently reviewed: CT scan of the abdomen is ordered. No stones or renal pathology. Note is made of florid colonic diverticulosis with multiple regions of intubated Oral contrast within large diverticula no evidence of diverticulitis or perforation Treatments: Fluids, single dose of Zosyn Re-evaluations: Patient is feeling much better. Last Tylenol was at 8:00 a.m. and he remains afebrile. With shared decision-making we decided that discharge home would be safe Discussion: 73-year-old gentleman who presents with 3 episodes of rigors and chills. Very responsive of to Tylenol and Alleve. Concern for bacteremia. Labs are fairly reassuring. He does not have leukocytosis although he does have a slight left shift. He does not appear toxic and certainly does not have an acute surgical abdomen. CT scan shows a rather dramatic amount of diverticula with significant debris but no evidence of acute diverticulitis. Patient was aware of the significantly redundant sigmoid colon and large amount of diverticula which was part of the reason he had the barium enema with air contrast on June 05, 2023. We had a long discussion regarding my concerns over the rigors and chills and high probability of positive blood cultures versus the fact that his labs were essentially normal and he appears nontoxic with a nonsurgical abdomen. Given the fact that they live less than [address], have reliable and safe transportation back as well as access to additional outpatient follow up care together we decided that home discharge would be appropriate. Clearly reviewed signs to return including increasing pain or persistent fevers. I told him we would contact him if blood cultures do return positive. If that were the case he would need to come back for IV antibiotics and at least a 24 hour admission. We also talked about his significant diverticulosis without evidence of perforation, stricture, abscess or rupture and I did suggest that he follow up with [facility] to talk about this as an outpatient. He may benefit from sigmoid colectomy at appointment he has not having fevers chills or pain. Questions are answered and he is discharged home Discharge Plan Departure Patient Disposition: Home Clinical Impression: Rigors, Diverticulosis large intestine w/o perforation or abscess w/o bleeding Instructions: DI for Diverticulosis Activity Restrictions/Additional Instructions: Thank you for coming in today I am concerned with the fever and chills that you had at home. Frequently people do have positive blood cultures in that setting. If your blood cultures do return positive, we will contact you and you will need to return to the emergency department with anticipation of admission for IV antibiotics. If you have worsening fevers, chills, abdominal pain or new symptoms you need to return to the emergency department If everything improves nicely and you are feeling well, I would recommend an outpatient consultation with surgery group. Please contact [facility] at please contact their office at [phone] and request a consultation appointment for significant diverticulosis as recommended by the physician seen in the emergency department. Prescriptions: No Action multivitamin [Multiple Vitamins] 1 EACH tablet 1 tab PO QDAY Qty: 0 ibuprofen [Advil] 200 MG tablet 200 mg PO PRN PRN (Reason: PAIN) Qty: 0 naproxen sodium 220 mg tablet 220 mg PO BID PRN (Reason: Pain (Scale Score 4-6)) Patient Comments: 1 tab every 12 hours as needed for body aches simvastatin 40 mg tablet 40 mg PO HS Qty: 90 3RF acetaminophen 500 mg Tablet 1,000 mg PO Q6H PRN (Reason: pain/fever) Referrals: Jazmyn Pulido DO [Primary Care Provider] - Stand Alone Forms: Patient Portal/API
[2023-10-08 11:33] LABS: Bacteria Urine None Seen; Culture Indicated Urine Cult Not Indicated; RBC Urine 0-1/HPF (0-5/HPF); Squamous Epithelial Cell Urine None Seen (0-5/HPF); Urine Volume 10mL (spun); WBC Urine 0-1/HPF (0-5/HPF)
[2023-10-08] MEDS: SODIUM CHLORIDE 0.9% 1,000 ML 1000 ML IV (11:38)
[2023-10-08] MEDS: PIPERACILLIN/TAZO 4.5 GM in SODIUM CHLORIDE 0.9% 100 ML IV (11:39)
== END 2023-10-08 13:36 | disposition home or self-care (01) ==
PROVIDERS: Emergency Provider Emergency Medicine; PCP Family Medicine
DX: K57.30 Diverticulosis of large intestine without perforation or abscess without bleeding (principal); R68.89 Other general symptoms and signs
CPT/HCPCS: 36415; 74177; 80053; 81003; 81015; 83605; 83690; 84145; 85025; 87040; 93005; 96365; 99284; J2543; Q9967

== ENCOUNTER → 2023-11-06 08:21 | Outpatient (CLI) | payer MEDICARE, OTHER, SELFPAY ==
[2023-11-06 09:11] LABS: Add Manual Diff / Slide Review NO; Basophils Absolute Auto 100 /uL (0-100); Basophils Percent Auto 0.9 % (0-2); Eosinophils Absolute Auto 200 /uL (0-450); Eosinophils Percent Auto 3.2 % (2-4); Hematocrit 42.5 % (41-53); Hemoglobin 14.6 g/dL (13.5-17.5); Lymphocytes Absolute Auto 1900 /uL (1100-4500); Lymphocytes Percent Auto 32.2 % (25-40); Mean Corpuscular HGB Conc 34.2 % (30-36); Mean Corpuscular Volume 87.6 fL (80-100); Monocytes Absolute Auto 500 /uL (0-900); Monocytes Percent Auto 8.1 % (3-14); Neutrophils Absolute Auto 3300 /uL (1500-7000); Neutrophils Percent Auto 55.6 % (50-75); Platelet Count 193 X10^3/uL (150-400); Red Blood Cell Count 4.85 X10^6/uL (4.5-5.9); Red Cell Distribution Width 13.3 % (11.6-14.8); White Blood Cell Count 5.9 X10^3/uL (4.5-11.0)
[2023-11-06 09:50] LABS: Cholesterol 118 mg/dL (140-199); HDL Cholesterol 37 mg/dL (40-60); LDL Cholesterol Calculated 69 mg/dL (<100); Triglycerides 61 mg/dL (35-150)
[2023-11-06 09:57] LABS: High Sensitivity CRP - Cardiac 4.1 mg/L (1.0-3.0)
[2023-11-06 10:08] LABS: Procalcitonin 0.06 ng/mL (<0.5)
== END ==
LOC: LAB 08:22
PROVIDERS: PCP Family Medicine; Referring Provider Family Medicine; Visit Provider Family Medicine
DX: D72.810 Lymphocytopenia (principal); R79.89 Other specified abnormal findings of blood chemistry; E78.00 Pure hypercholesterolemia, unspecified; R59.0 Localized enlarged lymph nodes; K57.30 Diverticulosis of large intestine without perforation or abscess without bleeding
CPT/HCPCS: 36415; 80061; 84145; 85025; 86140

== ENCOUNTER → 2023-11-20 10:55 | Outpatient (CLI) | payer MEDICARE, OTHER, SELFPAY ==
[2023-11-20 12:39] LABS: Prostate Specific Antigen Scrn 1.84 ng/mL (0.1-4.0)
== END ==
LOC: LAB 10:56
PROVIDERS: PCP Family Medicine; Referring Provider Family Medicine; Visit Provider Family Medicine
DX: Z85.46 Personal history of malignant neoplasm of prostate (principal)
CPT/HCPCS: G0103

== ENCOUNTER → 2024-11-04 07:43 | Outpatient (CLI) | payer MEDICARE, OTHER, SELFPAY ==
[2024-11-04 08:49] LABS: Add Manual Diff / Slide Review NO; Basophils Absolute Auto 100 /uL (0-100); Eosinophils Absolute Auto 300 /uL (0-450); Eosinophils Percent Auto 4.9 % (2-4); Hematocrit 43.3 % (41-53); Hemoglobin 14.7 g/dL (13.5-17.5); Lymphocytes Absolute Auto 2100 /uL (1100-4500); Lymphocytes Percent Auto 35.8 % (25-40); Mean Corpuscular HGB Conc 33.8 % (30-36); Mean Corpuscular Hemoglobin 29.7 PG (26-34); Mean Corpuscular Volume 87.8 fL (80-100); Monocytes Absolute Auto 400 /uL (0-900); Monocytes Percent Auto 7.5 % (3-14); Neutrophils Absolute Auto 3000 /uL (1500-7000); Neutrophils Percent Auto 50.8 % (50-75); Platelet Count 220 X10^3/uL (150-400); Red Blood Cell Count 4.93 X10^6/uL (4.5-5.9); Red Cell Distribution Width 12.8 % (11.6-14.8); White Blood Cell Count 5.9 X10^3/uL (4.5-11.0)
[2024-11-04 09:07] LABS: Alanine Aminotransferase 22 IU/L (<50); Albumin 4.3 g/dL (3.5-5.0); Albumin Globulin Ratio 1.7 (1.0-2.8); Alkaline Phosphatase 66 U/L (38-126); Aspartate Aminotransferase 30 IU/L (17-59); BUN Creatinine Ratio 25.9 (6-22); Bilirubin Total 0.7 mg/dL (0.2-1.3); Blood Urea Nitrogen 21 mg/dL (9-20); Calcium 9.1 mg/dL (8.4-10.2); Carbon Dioxide 26 mmol/L (22-32); Chloride 103 mmol/L (98-107); Cholesterol 142 mg/dL (140-199); Estimated Glomerular Filt Rate > 60 mL/min (>60); Globulin 2.5 g/dL (1.7-4.1); Glucose 91 mg/dL (70-99); HDL Cholesterol 36 mg/dL (40-60); HEMOLYSIS < 15 (0-50); LDL Cholesterol Calculated 88 mg/dL (<100); Potassium 4.1 mmol/L (3.4-5.1); Sodium 139 mmol/L (137-145); Total Protein 6.8 g/dL (6.3-8.2); Triglycerides 92 mg/dL (35-150)
[2024-11-04 09:36] LABS: Prostate Specific Antigen Scrn 2.47 ng/mL (0.1-4.0)
[2024-11-04 09:40] LABS: Ferritin 41 ng/mL (18-464)
== END ==
PROVIDERS: PCP Family Medicine; Referring Provider Family Medicine; Visit Provider Family Medicine
DX: Z85.46 Personal history of malignant neoplasm of prostate (principal); L81.9 Disorder of pigmentation, unspecified; E78.00 Pure hypercholesterolemia, unspecified; Z12.5 Encounter for screening for malignant neoplasm of prostate
CPT/HCPCS: 36415; 80053; 80061; 82728; 85025; G0103

== ENCOUNTER → 2025-01-20 11:11 | Outpatient (CLI) | payer MEDICARE, OTHER, SELFPAY ==
[2025-01-20 13:21] LABS: Prostate Specific Antigen 2.45 ng/mL (0.10-4.00)
== END ==
PROVIDERS: PCP Family Medicine; Referring Provider Urology; Visit Provider Urology
DX: Z85.46 Personal history of malignant neoplasm of prostate (principal)
CPT/HCPCS: 36415; 84153

== ENCOUNTER 2025-03-23 10:45 | Outpatient (RCR) | payer MEDICARE, OTHER, SELFPAY ==
--- NOTE | 2024-12-04 16:18 | PT.OIE ---
Current Diagnoses Foot drop, unspecified foot (12/04/24) Unspecified abnormalities of gait and mobility (12/04/24) Past Medical History (Last Updated 11/19/24 @ 17:51 by Jazmyn Pulido DO) Apnea Asthma Benign prostatic hyperplasia with lower urinary tract symptoms (10/02/17) Constipation GERD (gastroesophageal reflux disease) History of basal cell cancer (~2022) History of malignant neoplasm of prostate (10/02/17) Impaired hearing Impaired vision Lymphopenia Mesenteric lymphadenopathy (10/02/17) Parotiditis Personal history of colonic polyps Visit Care Team Role Provider Type Jazmyn Pulido DO Attending Provider Physician Family Provider Primary Care Provider Referring Provider Specialty: Medical Address: [address] [place] [address], [address], [place], [address] Email: [email or web address] Physical Therapy Initial Evaluation PT-OP-A Visit Information Start: 12/04/24 10:39 Freq: Status: Active Protocol: Document 12/04/24 10:42 ARCHITECTURAL ENGINEER (Rec: 12/04/24 11:34 ARCHITECTURAL ENGINEER Laptop) Out-Patient Physical Therapy Visit Information Visit Information Visit Type Initial Evaluation Visit Start Time 10:45 Visit Number 1 Number of SPA TECHNICIAN Visits 0 Evaluation Information Evaluation Date 12/04/24 PT-OP-B Current Condition Start: 12/04/24 10:39 Freq: Status: Active Protocol: Document 12/04/24 10:42 ARCHITECTURAL ENGINEER (Rec: 12/04/24 11:34 ARCHITECTURAL ENGINEER Laptop) Current Condition History of Current Condition History of Current Condition Pt amb into session without AD , slightly unsteady but with normal speed and without LOB. reports his has noticed he doesn't cotton picker his feet when he walks, as noticed by scuff da silva on the floor. He reports he feels a little bit slower in his older age but doesn't notice any big issues while moving and doing ADLs and does not have any pains. Pt reports his only fall was a few years ago when he was carrying an armload full of stuff down the stairs to his deck but did not have an injury. Pt lives in multi level house with a loft and deck with spouse and reports no issues navigating stairs but lightly uses HR. Pt is moderately active, likes to fish on boat and hike, uses a hiking pole when hiking. Treatment Goals Patient/Caregiver Goals To see whether or not there are problems to improve PT-OP-C Subjective Start: 12/04/24 10:39 Freq: Status: Active Protocol: Document 12/04/24 10:42 ARCHITECTURAL ENGINEER (Rec: 12/04/24 11:34 ARCHITECTURAL ENGINEER Laptop) Patient Questionnaires Lower Extremity Functional Scale LEFS Score 74/80 OP-PT Pain Assessment Comments Pain Comments No pain PT-OP-D Balance Start: 12/04/24 10:39 Freq: Status: Active Protocol: Document 12/04/24 10:42 ARCHITECTURAL ENGINEER (Rec: 12/04/24 11:34 ARCHITECTURAL ENGINEER Laptop) Balance Tests Romberg Romberg slightly unsteady but without LOB 30s Single Limb Standing Single Limb- Right 3 Single Limb- Left 3 Calvo Balance Assessment Evaluation Sitting to Standing Ability Independent w/out Hands Unsupported Stance Safely- 2 minutes Sitting Unsupported, Feet on Floor Safely- 2 minutes Standing to Sitting Ability Safely, Minimal Hand Use Transfer Ability Safely, Minimal Hand Use Unsupported Stance- Eyes Closed Supervision, 10 seconds Unsupported Stance- Eyes Open Independent, 1 minute Reaching Forward Standing Confidently, 10 inches Pick- Up Object From Floor Independent/Safe Look Behind Shoulder - Standing Shifts Weight Well Turning 360 Degrees Turns , < 4 secs Unsupported Tandem Stance Holds Tandem- 30 seconds Unilateral Leg Stance Lifts Leg/Unable to Hold Total Score Calvo Total Score (out of 56 points) 46 PT-OP-E Functional Tests Start: 12/04/24 10:39 Freq: Status: Active Protocol: Document 12/04/24 10:42 ARCHITECTURAL ENGINEER (Rec: 12/04/24 11:34 ARCHITECTURAL ENGINEER Laptop) Functional Tests 30 Second Sit to Stand Test Score 13 Comments without UEs PT-OP-G Mobility & Gait Start: 12/04/24 10:39 Freq: Status: Active Protocol: Document 12/04/24 10:42 ARCHITECTURAL ENGINEER (Rec: 12/04/24 11:34 ARCHITECTURAL ENGINEER Laptop) OP Gait Assessment Comments Gait Comments L hip drop, decreased B toe clearance R>L, narrow ROBERT with ocasional scissoring PT-OP-M Strength Start: 12/04/24 10:39 Freq: Status: Active Protocol: Document 12/04/24 10:42 ARCHITECTURAL ENGINEER (Rec: 12/04/24 11:34 ARCHITECTURAL ENGINEER Laptop) Hip Strength Hip Manual Muscle Testing L Flexion (L2) 4+ Good+ Extension (S1) 4- Good- Abduction 4+ Good+ External Rotation 4 Good Internal Rotation 4- Good- R Flexion (L2) 5 Normal Extension (S1) 4- Good- Abduction 4 Good External Rotation 4 Good Internal Rotation 4- Good- Knee Strength Knee Manual Muscle Testing L Flexion (S2) 4+ Good+ Extension (L3) 4+ Good+ R Flexion (S2) 5 Normal Extension (L3) 5 Normal Ankle/Foot Strength Ankle and Foot Manual Muscle Testing L Dorsiflexion (L4) 4 Good R Dorsiflexion (L4) 4- Good- PT-OP-Q Treatments Start: 12/04/24 10:39 Freq: Status: Active Protocol: Document 12/04/24 10:42 ARCHITECTURAL ENGINEER (Rec: 12/04/24 16:12 ARCHITECTURAL ENGINEER Laptop) Gait Training Gait Activity GT even surface Device Used none Level of Assistance spv Surface even carpet inside Distance/Duration 50' Treatment Focus B foot clearance Comments VC for B heel strike and toe off PT-OP-T Assessment and Plan Start: 12/04/24 10:39 Freq: Status: Active Protocol: Document 12/04/24 10:42 ARCHITECTURAL ENGINEER (Rec: 12/04/24 16:12 ARCHITECTURAL ENGINEER Laptop) Physical Therapy Assessment Rehab Potential Rehabilitation Potential Excellent Evaluation Complexity Number of Personal Factors/Comorbidities 1-2 Number of Body Systems Impaired 1-2 Clinical Presentation at Evaluation Stable Impairments Impairments Balance,Gait,Strength Goals 2. Impairment Balance Short Term Goal (STG) Pt will perform 30s SLS on each LE to improve balance during functional mobility STG Duration 5 weeks Supervisor Printing And Stamping Goal (LTG) Pt will perform 60s SLS on each LE on foam to improve balance during functional mobility LTG Duration 10 weeks 1. Impairment Strength Impairment BLE weakness with emphasis on DF, hip abd, and hip ext Short Term Goal (STG) Pt will improve B DF, hip abd, and hip ext strength by 1 MMT score to improve function STG Duration 5 weeks Supervisor Printing And Stamping Goal (LTG) Pt will demonstrate improved gait 150' on even surface without AD with full foot clearance and without L hip drop LTG Duration 10 weeks Assessment Summary Assessment Pt presents with decreased standing balance, decreased BLE hip and ankle strength, and impaired gait pattern which increases his risk for falls. Pt will benefit from skilled PT intervention to address above deficits and improve functional mobility and fall prevention. Physical Therapy Plan Frequency and Duration Frequency of Treatment 1-2x/wk Duration of treatment (weeks) 10 Plan of Care Start Date 12/04/24 Plan of Care End Date 02/12/25 Therapeutic Interventions Therapeutic Interventions Balance Training,Gait Training ,Home Exercise Program,Manual Therapy,Neuromuscular Re- education,Patient/Caregiver Education,Soft Tissue Mobilization,Therapeutic Activities,Therapeutic Exercises Modalities Cold Pack/Ice Massage,Hot Packs,Ultrasound Next Visit Focus/Plan Next Note Type Treatment Note Next Visit Plan BLE strength HEP, balance training, B hip stretching
--- NOTE | 2024-12-04 16:19 | PT.OPPOC ---
Physical, Occupational & Speech Therapy At [facility] Current Diagnoses Foot drop, unspecified foot (12/04/24) Unspecified abnormalities of gait and mobility (12/04/24) Visit Care Team Role Provider Type Jazmyn Pulido DO Attending Provider Physician Family Provider Primary Care Provider Referring Provider Specialty: Medical Address: [address] [place] [address], [address], [place], [address] Email: [email or web address] Plan Of Care PT-OP-B Current Condition Start: 12/04/24 10:39 Freq: Status: Active Protocol: Document 12/04/24 10:42 TUBE DISPATCHER (Rec: 12/04/24 11:34 TUBE DISPATCHER Laptop) Current Condition History of Current Condition History of Current Condition Pt amb into session without AD , slightly unsteady but with normal speed and without LOB. reports his has noticed he doesn't picking supervisor his feet when he walks, as noticed by scuff da silva on the floor. He reports he feels a little bit slower in his older age but doesn't notice any big issues while moving and doing ADLs and does not have any pains. Pt reports his only fall was a few years ago when he was carrying an armload full of stuff down the stairs to his deck but did not have an injury. Pt lives in multi level house with a loft and deck with spouse and reports no issues navigating stairs but lightly uses HR. Pt is moderately active, likes to fish on boat and hike, uses a hiking pole when hiking. Treatment Goals Patient/Caregiver Goals To see whether or not there are problems to improve PT-OP-T Assessment and Plan Start: 12/04/24 10:39 Freq: Status: Active Protocol: Document 12/04/24 10:42 TUBE DISPATCHER (Rec: 12/04/24 16:12 TUBE DISPATCHER Laptop) Physical Therapy Assessment Rehab Potential Rehabilitation Potential Excellent Evaluation Complexity Number of Personal Factors/Comorbidities 1-2 Number of Body Systems Impaired 1-2 Clinical Presentation at Evaluation Stable Impairments Impairments Balance,Gait,Strength Goals 2. Impairment Balance Short Term Goal (STG) Pt will perform 30s SLS on each LE to improve balance during functional mobility STG Duration 5 weeks Skilled Nursing Goal (LTG) Pt will perform 60s SLS on each LE on foam to improve balance during functional mobility LTG Duration 10 weeks 1. Impairment Strength Impairment BLE weakness with emphasis on DF, hip abd, and hip ext Short Term Goal (STG) Pt will improve B DF, hip abd, and hip ext strength by 1 MMT score to improve function STG Duration 5 weeks Landscape Architect Goal (LTG) Pt will demonstrate improved gait 150' on even surface without AD with full foot clearance and without L hip drop LTG Duration 10 weeks Assessment Summary Assessment Pt presents with decreased standing balance, decreased BLE hip and ankle strength, and impaired gait pattern which increases his risk for falls. Pt will benefit from skilled PT intervention to address above deficits and improve functional mobility and fall prevention. Physical Therapy Plan Frequency and Duration Frequency of Treatment 1-2x/wk Duration of treatment (weeks) 10 Plan of Care Start Date 12/04/24 Plan of Care End Date 02/12/25 Therapeutic Interventions Therapeutic Interventions Balance Training,Gait Training ,Home Exercise Program,Manual Therapy,Neuromuscular Re- education,Patient/Caregiver Education,Soft Tissue Mobilization,Therapeutic Activities,Therapeutic Exercises Modalities Cold Pack/Ice Massage,Hot Packs,Ultrasound Next Visit Focus/Plan Next Note Type Treatment Note Next Visit Plan BLE strength HEP, balance training, B hip stretching Plan of Care Dates Plan of Care Start Date 12/04/24 Plan of Care End Date 02/12/25 Electronically Signed by: Harini Rangel, PT 12/04/24 4548 If you are in agreement with this Plan of Care, please return a signed and dated copy. I have reviewed this Plan of Care and certify that the skilled therapy services above are required to meet the patient?s needs. Physician Signature Date Printed Name and Credentials Clinical Instructor Signature Printed Name and Credentials
--- NOTE | 2024-12-10 11:46 | PT.OTN ---
Current Diagnoses Foot drop, unspecified foot (12/10/24) Unspecified abnormalities of gait and mobility (12/10/24) Physical Therapy Treatment Note PT-OP-A Visit Information Start: 12/04/24 10:39 Freq: Status: Active Protocol: Document 12/10/24 10:05 HEAVY EQUIPMENT TECHNICIAN (Rec: 12/10/24 10:01 HEAVY EQUIPMENT TECHNICIAN Laptop) Out-Patient Physical Therapy Visit Information Visit Information Visit Type Treatment Note Visit Start Time 10:45 Visit Stop Time 11:38 Visit Number 1 Number of LABORER OPERATOR Visits 0 Evaluation Information Evaluation Date 12/04/24 PT-OP-B Current Condition Start: 12/04/24 10:39 Freq: Status: Active Protocol: Document 12/04/24 10:42 HEAVY EQUIPMENT TECHNICIAN (Rec: 12/04/24 11:34 HEAVY EQUIPMENT TECHNICIAN Laptop) Current Condition History of Current Condition History of Current Condition Pt amb into session without AD , slightly unsteady but with normal speed and without LOB. reports his has noticed he doesn't pepper picker his feet when he walks, as noticed by scuff da silva on the floor. He reports he feels a little bit slower in his older age but doesn't notice any big issues while moving and doing ADLs and does not have any pains. Pt reports his only fall was a few years ago when he was carrying an armload full of stuff down the stairs to his deck but did not have an injury. Pt lives in multi level house with a loft and deck with spouse and reports no issues navigating stairs but lightly uses HR. Pt is moderately active, likes to fish on boat and hike, uses a hiking pole when hiking. Treatment Goals Patient/Caregiver Goals To see whether or not there are problems to improve PT-OP-C Subjective Start: 12/04/24 10:39 Freq: Status: Active Protocol: Document 12/10/24 10:05 HEAVY EQUIPMENT TECHNICIAN (Rec: 12/10/24 10:08 HEAVY EQUIPMENT TECHNICIAN Laptop) OP-PT Subjective Patient Comments Patient Comments Pt reports no changes since eval. He will be gone on a fishing trip all next week but reports he will be able to work on HEP while on boat. PT-OP-D Balance Start: 12/04/24 10:39 Freq: Status: Active Protocol: Document 12/04/24 10:42 HEAVY EQUIPMENT TECHNICIAN (Rec: 12/04/24 11:34 HEAVY EQUIPMENT TECHNICIAN Laptop) Balance Tests Romberg Romberg slightly unsteady but without LOB 30s Single Limb Standing Single Limb- Right 3 Single Limb- Left 3 Calvo Balance Assessment Evaluation Sitting to Standing Ability Independent w/out Hands Unsupported Stance Safely- 2 minutes Sitting Unsupported, Feet on Floor Safely- 2 minutes Standing to Sitting Ability Safely, Minimal Hand Use Transfer Ability Safely, Minimal Hand Use Unsupported Stance- Eyes Closed Supervision, 10 seconds Unsupported Stance- Eyes Open Independent, 1 minute Reaching Forward Standing Confidently, 10 inches Pick- Up Object From Floor Independent/Safe Look Behind Shoulder - Standing Shifts Weight Well Turning 360 Degrees Turns , < 4 secs Unsupported Tandem Stance Holds Tandem- 30 seconds Unilateral Leg Stance Lifts Leg/Unable to Hold Total Score Calvo Total Score (out of 56 points) 46 PT-OP-E Functional Tests Start: 12/04/24 10:39 Freq: Status: Active Protocol: Document 12/04/24 10:42 HEAVY EQUIPMENT TECHNICIAN (Rec: 12/04/24 11:34 HEAVY EQUIPMENT TECHNICIAN Laptop) Functional Tests 30 Second Sit to Stand Test Score 13 Comments without UEs PT-OP-G Mobility & Gait Start: 12/04/24 10:39 Freq: Status: Active Protocol: Document 12/04/24 10:42 HEAVY EQUIPMENT TECHNICIAN (Rec: 12/04/24 11:34 HEAVY EQUIPMENT TECHNICIAN Laptop) OP Gait Assessment Comments Gait Comments L hip drop, decreased B toe clearance R>L, narrow ROBERT with ocasional scissoring PT-OP-M Strength Start: 12/04/24 10:39 Freq: Status: Active Protocol: Document 12/04/24 10:42 HEAVY EQUIPMENT TECHNICIAN (Rec: 12/04/24 11:34 HEAVY EQUIPMENT TECHNICIAN Laptop) Hip Strength Hip Manual Muscle Testing L Flexion (L2) 4+ Good+ Extension (S1) 4- Good- Abduction 4+ Good+ External Rotation 4 Good Internal Rotation 4- Good- R Flexion (L2) 5 Normal Extension (S1) 4- Good- Abduction 4 Good External Rotation 4 Good Internal Rotation 4- Good- Knee Strength Knee Manual Muscle Testing L Flexion (S2) 4+ Good+ Extension (L3) 4+ Good+ R Flexion (S2) 5 Normal Extension (L3) 5 Normal Ankle/Foot Strength Ankle and Foot Manual Muscle Testing L Dorsiflexion (L4) 4 Good R Dorsiflexion (L4) 4- Good- PT-OP-Q Treatments Start: 12/04/24 10:39 Freq: Status: Active Protocol: Document 12/10/24 10:05 HEAVY EQUIPMENT TECHNICIAN (Rec: 12/10/24 10:08 HEAVY EQUIPMENT TECHNICIAN Laptop) Cardio Equipment Recumbent Stepper (Sci-Fit) Duration (Minutes) 5 Resistance L4 Other NuStep, ~100 SPM Therapeutic Exercises Supine Exercises Hip Flexor Stretch Supine Exercise Name Hanging LLE off of table with knee bent Side left Reps/Minutes 1 min Comments Performed before L glute stretch for less bunching feel of hip flexors Glute Stretch Supine Exercise Name 1. Single knee to same shoulder 2. Single knee to opposite shoulder Side bilateral Reps/Minutes 1 min x2 Comments Added to HEP Bridges Side bilateral Resistance L2 TB Reps/Minutes 10x2 Comments Added to HEP Sidelying Exercises Clamshells Side bilateral Resistance gravity Reps/Minutes 10x2 Comments hand on hip for self cueing to prevent hip roll back, Added to HEP Standing Exercises Toe Raises Side bilateral Resistance gravity Equipment Used B HRs Reps/Minutes 10x2 Comments Added to HEP Gastroc Stretch Side bilateral Equipment Used 6 stair and B HRs Reps/Minutes 1 min x2 Comments L tighter than R, Added to HEP PT-OP-T Assessment and Plan Start: 12/04/24 10:39 Freq: Status: Active Protocol: Document 12/10/24 10:05 HEAVY EQUIPMENT TECHNICIAN (Rec: 12/10/24 10:04 HEAVY EQUIPMENT TECHNICIAN Laptop) Physical Therapy Assessment Rehab Potential Rehabilitation Potential Excellent Impairments Impairments Balance,Gait,Strength Goals 2. Impairment Balance Short Term Goal (STG) Pt will perform 30s SLS on each LE to improve balance during functional mobility STG Duration 5 weeks Shelter Goal (LTG) Pt will perform 60s SLS on each LE on foam to improve balance during functional mobility LTG Duration 10 weeks Assessment Summary Assessment Pt tolerated hip strengthening and stretching and standing gastroc stretching and strengthening well this session. Pt reported bunching in L hip flexors preventing full L glute stretch but improved after L HF stretch. Pt given HEP printout this session and therapist emphasized importance of daily compliance as pt will not have PT next week d/t gone on fishing trip. Physical Therapy Plan Frequency and Duration Frequency of Treatment 1-2x/wk Duration of treatment (weeks) 10 Plan of Care Start Date 12/04/24 Plan of Care End Date 02/12/25 Therapeutic Interventions Therapeutic Interventions Balance Training,Gait Training ,Home Exercise Program,Manual Therapy,Neuromuscular Re- education,Patient/Caregiver Education,Soft Tissue Mobilization,Therapeutic Activities,Therapeutic Exercises Modalities Cold Pack/Ice Massage,Hot Packs,Ultrasound Next Visit Focus/Plan Next Note Type Treatment Note Next Visit Plan Review HEP, balance training, B hip adductor stretching, B HS stretching, standing B hip strengthening
--- NOTE | 2024-12-22 14:53 | PT.OTN ---
Current Diagnoses Foot drop, unspecified foot (12/22/24) Unspecified abnormalities of gait and mobility (12/22/24) Physical Therapy Treatment Note PT-OP-A Visit Information Start: 12/04/24 10:39 Freq: Status: Active Protocol: Document 12/22/24 13:55 MEDICAL ADMINISTRATOR (Rec: 12/22/24 14:53 MEDICAL ADMINISTRATOR Laptop) Out-Patient Physical Therapy Visit Information Visit Information Visit Type Treatment Note Visit Start Time 13:51 Visit Stop Time 14:30 Visit Number 3 Number of SOFTWARE APPLICATIONS ENGINEER Visits 0 Evaluation Information Evaluation Date 12/04/24 PT-OP-B Current Condition Start: 12/04/24 10:39 Freq: Status: Active Protocol: Document 12/04/24 10:42 MEDICAL ADMINISTRATOR (Rec: 12/04/24 11:34 MEDICAL ADMINISTRATOR Laptop) Current Condition History of Current Condition History of Current Pt amb into session without AD, slightly unsteady but Condition with normal speed and without LOB. reports his has noticed he doesn't burr picker his feet when he walks, as noticed by scuff da silva on the floor. He reports he feels a little bit slower in his older age but doesn't notice any big issues while moving and doing ADLs and does not have any pains. Pt reports his only fall was a few years ago when he was carrying an armload full of stuff down the stairs to his deck but did not have an injury. Pt lives in multi level house with a loft and deck with spouse and reports no issues navigating stairs but lightly uses HR. Pt is moderately active, likes to fish on boat and hike, uses a hiking pole when hiking. Treatment Goals Patient/Caregiver To see whether or not there are problems to improve Goals PT-OP-C Subjective Start: 12/04/24 10:39 Freq: Status: Active Protocol: Document 12/22/24 13:55 MEDICAL ADMINISTRATOR (Rec: 12/22/24 14:53 MEDICAL ADMINISTRATOR Laptop) OP-PT Subjective Patient Comments Patient Comments Pt returned from his fishing trip and reports he did not work on his exercises like he thought he would be able to but did a lot of walking. He reports no issues with pain or movement. PT-OP-D Balance Start: 12/04/24 10:39 Freq: Status: Active Protocol: Document 12/04/24 10:42 MEDICAL ADMINISTRATOR (Rec: 12/04/24 11:34 MEDICAL ADMINISTRATOR Laptop) Balance Tests Romberg Romberg slightly unsteady but without LOB 30s Single Limb Standing Single Limb- Right 3 Single Limb- Left 3 Calvo Balance Assessment Evaluation Sitting to Standing Independent w/out Hands Ability Unsupported Stance Safely- 2 minutes Sitting Unsupported, Safely- 2 minutes Feet on Floor Standing to Sitting Safely, Minimal Hand Use Ability Transfer Ability Safely, Minimal Hand Use Unsupported Stance- Supervision, 10 seconds Eyes Closed Unsupported Stance- Independent, 1 minute Eyes Open Reaching Forward Confidently, 10 inches Standing Pick- Up Object From Independent/Safe Floor Look Behind Shoulder Shifts Weight Well - Standing Turning 360 Degrees Turns , < 4 secs Unsupported Tandem Holds Tandem- 30 seconds Stance Unilateral Leg Lifts Leg/Unable to Hold Stance Total Score Calvo Total Score ( 46 out of 56 points) PT-OP-E Functional Tests Start: 12/04/24 10:39 Freq: Status: Active Protocol: Document 12/04/24 10:42 MEDICAL ADMINISTRATOR (Rec: 12/04/24 11:34 MEDICAL ADMINISTRATOR Laptop) Functional Tests 30 Second Sit to Stand Test Score 13 Comments without UEs PT-OP-G Mobility & Gait Start: 12/04/24 10:39 Freq: Status: Active Protocol: Document 12/04/24 10:42 MEDICAL ADMINISTRATOR (Rec: 12/04/24 11:34 MEDICAL ADMINISTRATOR Laptop) OP Gait Assessment Comments Gait Comments L hip drop, decreased B toe clearance R>L, narrow ROBERT with ocasional scissoring PT-OP-M Strength Start: 12/04/24 10:39 Freq: Status: Active Protocol: Document 12/04/24 10:42 MEDICAL ADMINISTRATOR (Rec: 12/04/24 11:34 MEDICAL ADMINISTRATOR Laptop) Hip Strength Hip Manual Muscle Testing L Flexion (L2) 4+ Good+ Extension (S1) 4- Good- Abduction 4+ Good+ External Rotation 4 Good Internal Rotation 4- Good- R Flexion (L2) 5 Normal Extension (S1) 4- Good- Abduction 4 Good External Rotation 4 Good Internal Rotation 4- Good- Knee Strength Knee Manual Muscle Testing L Flexion (S2) 4+ Good+ Extension (L3) 4+ Good+ R Flexion (S2) 5 Normal Extension (L3) 5 Normal Ankle/Foot Strength Ankle and Foot Manual Muscle Testing L Dorsiflexion (L4) 4 Good R Dorsiflexion (L4) 4- Good- PT-OP-Q Treatments Start: 12/04/24 10:39 Freq: Status: Active Protocol: Document 12/22/24 13:55 MEDICAL ADMINISTRATOR (Rec: 12/22/24 14:53 MEDICAL ADMINISTRATOR Laptop) Therapeutic Exercises Supine Exercises Clamshells Side bilateral Resistance L2 TB Reps/Minutes 10x2 Comments Progressed HEP Glute Stretch Supine Exercise Name 1. Single knee to same shoulder 2. Single knee to opposite shoulder Side bilateral Reps/Minutes 1 min Comments HEP review Bridges Side bilateral Resistance L2 TB Reps/Minutes x10 Comments HEP review Standing Exercises HS Stretch Side bilateral Equipment Used 6 stair and B HRs Reps/Minutes 1 min each Toe Raises Side bilateral Resistance gravity Equipment Used B HRs Reps/Minutes x10 Comments HEP review Gastroc Stretch Side bilateral Equipment Used 6 stair and B HRs Reps/Minutes 1 min each Comments HEP review Neuro Re-Education Treatment Balance Activities SLS Details R and L modified SLS with light toe touch Surface even floor Reps/Duration 1 min each Foam Details 1. narrow stance 2. narrow eyes closed 3. semi tandem Surface foam Reps/Duration 30s each Comments SBA, semi tandem ~1 wide compensation PT-OP-T Assessment and Plan Start: 12/04/24 10:39 Freq: Status: Active Protocol: Document 12/22/24 13:55 MEDICAL ADMINISTRATOR (Rec: 12/22/24 14:53 MEDICAL ADMINISTRATOR Laptop) Physical Therapy Assessment Goals 2. Impairment Balance Short Term Goal (STG Pt will perform 30s SLS on each LE to improve balance ) during functional mobility STG Duration 5 weeks Carpet Cutter Goal (LTG) Pt will perform 60s SLS on each LE on foam to improve balance during functional mobility LTG Duration 10 weeks Assessment Summary Assessment Pt benefited from HEP review this session d/t not performing during boat trip last week, advanced sidelying clamshells to hooklying with TB. Pt will continue to benefit from standing balance exercises, and hip strengthening and flexibility. Physical Therapy Plan Frequency and Duration Frequency of 1-2x/wk Treatment Duration of 10 treatment (weeks) Plan of Care Start 12/04/24 Date Plan of Care End 02/12/25 Date Therapeutic Interventions Therapeutic Balance Training,Gait Training,Home Exercise Program, Interventions Manual Therapy,Neuromuscular Re-education,Patient/ Caregiver Education,Soft Tissue Mobilization, Therapeutic Activities,Therapeutic Exercises Modalities Cold Pack/Ice Massage,Hot Packs,Ultrasound Next Visit Focus/Plan Next Note Type Treatment Note Next Visit Plan Dynamic standing training, B hip adductor stretching, standing B hip strengthening, spinal mobility
--- NOTE | 2024-12-29 13:21 | PT.OTN ---
Current Diagnoses Foot drop, unspecified foot (12/29/24) Unspecified abnormalities of gait and mobility (12/29/24) Physical Therapy Treatment Note PT-OP-A Visit Information Start: 12/04/24 10:39 Freq: Status: Active Protocol: Document 12/29/24 10:48 JAVA ARCHITECT (Rec: 12/29/24 11:46 JAVA ARCHITECT Laptop) Out-Patient Physical Therapy Visit Information Visit Information Visit Type Treatment Note Visit Start Time 10:48 Visit Stop Time 11:30 Visit Number 4 Number of MARSH BUGGY OPERATOR Visits 0 Evaluation Information Evaluation Date 12/04/24 PT-OP-B Current Condition Start: 12/04/24 10:39 Freq: Status: Active Protocol: Document 12/04/24 10:42 JAVA ARCHITECT (Rec: 12/04/24 11:34 JAVA ARCHITECT Laptop) Current Condition History of Current Condition History of Current Pt amb into session without AD, slightly unsteady but Condition with normal speed and without LOB. 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 He reports he feels a little bit slower in his older age but doesn't notice any big issues while moving and doing ADLs and does not have any pains. Pt reports his only fall was a few years ago when he was carrying an armload full of stuff down the stairs to his deck but did not have an injury. Pt lives in multi level house with a loft and deck with spouse and reports no issues navigating stairs but lightly uses HR. Pt is moderately active, likes to fish on boat and hike, uses a hiking pole when hiking. Treatment Goals Patient/Caregiver To see whether or not there are problems to improve Goals PT-OP-C Subjective Start: 12/04/24 10:39 Freq: Status: Active Protocol: Document 12/29/24 10:48 JAVA ARCHITECT (Rec: 12/29/24 11:46 JAVA ARCHITECT Laptop) OP-PT Subjective Patient Comments Patient Comments Pt reports no complaints of pain or difficulties over the weekend while working on boat but does report noting small improvement picking up feet while walking. Feels a little bit of pain in low back for a short time after performing glute stretch. PT-OP-D Balance Start: 12/04/24 10:39 Freq: Status: Active Protocol: Document 12/04/24 10:42 JAVA ARCHITECT (Rec: 12/04/24 11:34 JAVA ARCHITECT Laptop) Balance Tests Romberg Romberg slightly unsteady but without LOB 30s Single Limb Standing Single Limb- Right 3 Single Limb- Left 3 Calvo Balance Assessment Evaluation Sitting to Standing Independent w/out Hands Ability Unsupported Stance Safely- 2 minutes Sitting Unsupported, Safely- 2 minutes Feet on Floor Standing to Sitting Safely, Minimal Hand Use Ability Transfer Ability Safely, Minimal Hand Use Unsupported Stance- Supervision, 10 seconds Eyes Closed Unsupported Stance- Independent, 1 minute Eyes Open Reaching Forward Confidently, 10 inches Standing Pick- Up Object From Independent/Safe Floor Look Behind Shoulder Shifts Weight Well - Standing Turning 360 Degrees Turns , < 4 secs Unsupported Tandem Holds Tandem- 30 seconds Stance Unilateral Leg Lifts Leg/Unable to Hold Stance Total Score Calvo Total Score ( 46 out of 56 points) PT-OP-E Functional Tests Start: 12/04/24 10:39 Freq: Status: Active Protocol: Document 12/04/24 10:42 JAVA ARCHITECT (Rec: 12/04/24 11:34 JAVA ARCHITECT Laptop) Functional Tests 30 Second Sit to Stand Test Score 13 Comments without UEs PT-OP-G Mobility & Gait Start: 12/04/24 10:39 Freq: Status: Active Protocol: Document 12/04/24 10:42 JAVA ARCHITECT (Rec: 12/04/24 11:34 JAVA ARCHITECT Laptop) OP Gait Assessment Comments Gait Comments L hip drop, decreased B toe clearance R>L, narrow ROBERT with ocasional scissoring PT-OP-M Strength Start: 12/04/24 10:39 Freq: Status: Active Protocol: Document 12/04/24 10:42 JAVA ARCHITECT (Rec: 12/04/24 11:34 JAVA ARCHITECT Laptop) Hip Strength Hip Manual Muscle Testing L Flexion (L2) 4+ Good+ Extension (S1) 4- Good- Abduction 4+ Good+ External Rotation 4 Good Internal Rotation 4- Good- R Flexion (L2) 5 Normal Extension (S1) 4- Good- Abduction 4 Good External Rotation 4 Good Internal Rotation 4- Good- Knee Strength Knee Manual Muscle Testing L Flexion (S2) 4+ Good+ Extension (L3) 4+ Good+ R Flexion (S2) 5 Normal Extension (L3) 5 Normal Ankle/Foot Strength Ankle and Foot Manual Muscle Testing L Dorsiflexion (L4) 4 Good R Dorsiflexion (L4) 4- Good- PT-OP-Q Treatments Start: 12/04/24 10:39 Freq: Status: Active Protocol: Document 12/29/24 10:48 JAVA ARCHITECT (Rec: 12/29/24 11:46 JAVA ARCHITECT Laptop) Cardio Equipment Recumbent Bicycle Duration (Minutes) 5 Resistance L6 Seat Position 5 Other For BLE warm up Gym Equipment Shuttle Balance Red [place] Details ant-post and med-lat, narrow and wide ROBERT Reps/Duration 10 mins Comments CGA-SBA without UE support. Improved steadiness during exercise Therapeutic Exercises Supine Exercises DKSTS Supine Exercise Name double knee side to side Side bilateral Reps/Minutes x10 with 5s hold Comments Added to HEP after SKTC for improved back pain when transitioning to sit Glute Stretch Supine Exercise Name 1. Single knee to same shoulder 2. Single knee to opposite shoulder Side bilateral Comments HEP review Sitting Exercises Stretch Sitting Exercise In long sitting 1. HS 2. Adductor Name Side bilateral Equipment Used on mat table/bed Reps/Minutes 1 min Comments Added to HEP, HS stretch switched to this position Standing Exercises Hip Adductor Standing Exercise Stretch Name Side bilateral Equipment Used 6 stair and B HRs Reps/Minutes 1 min each HS Stretch Side bilateral Equipment Used 6 stair and B HRs Reps/Minutes 1 min each Comments HEP review, reports pains in knees Neuro Re-Education Treatment Balance Activities SLS Details modified SLS via toe taps onto cone Surface foam Equipment 6 cone on 8 platform Reps/Duration x10 each side Comments increased difficulty in R SLS PT-OP-T Assessment and Plan Start: 12/04/24 10:39 Freq: Status: Active Protocol: Document 12/29/24 10:48 JAVA ARCHITECT (Rec: 12/29/24 11:46 JAVA ARCHITECT Laptop) Physical Therapy Assessment Impairments Impairments Balance,Gait,Strength Goals 2. Impairment Balance Short Term Goal (STG Pt will perform 30s SLS on each LE to improve balance ) during functional mobility STG Duration 5 weeks Group Home Goal (LTG) Pt will perform 60s SLS on each LE on foam to improve balance during functional mobility LTG Duration 10 weeks 1. Impairment Strength Impairment BLE weakness with emphasis on DF, hip abd, and hip ext Short Term Goal (STG Pt will improve B DF, hip abd, and hip ext strength by ) 1 MMT score to improve function STG Duration 5 weeks Group Home Goal (LTG) Pt will demonstrate improved gait 150' on even surface without AD with full foot clearance and without L hip drop LTG Duration 10 weeks Progress Towards Goals Progress Towards Progressing Toward Goals Goals Assessment Summary Assessment Pt is demonstrating improvements with knowledge of HEP, lumbar spine and hip ROM, and balance. Pt will still benefit from continued skilled PT and discussed with pt to continue 1x/wk for at least next 4 weeks as long as he is making time to perform HEP at least 1x daily. Physical Therapy Plan Frequency and Duration Frequency of 1-2x/wk Treatment Duration of 10 treatment (weeks) Plan of Care Start 12/04/24 Date Plan of Care End 02/12/25 Date Therapeutic Interventions Therapeutic Balance Training,Gait Training,Home Exercise Program, Interventions Manual Therapy,Neuromuscular Re-education,Patient/ Caregiver Education,Soft Tissue Mobilization, Therapeutic Activities,Therapeutic Exercises Modalities Cold Pack/Ice Massage,Hot Packs,Ultrasound Next Visit Focus/Plan Next Note Type Treatment Note Next Visit Plan Ball throws on shuttle balance, standing B hip strengthening, shuttle recovery
--- NOTE | 2025-01-06 10:45 | PT.OTN ---
Current Diagnoses Foot drop, unspecified foot (01/06/25) Unspecified abnormalities of gait and mobility (01/06/25) Physical Therapy Treatment Note PT-OP-A Visit Information Start: 12/04/24 10:39 Freq: Status: Active Protocol: Document 01/06/25 10:30 AB (Rec: 01/06/25 10:45 AB Laptop) Out-Patient Physical Therapy Visit Information Visit Information Visit Type Treatment Note Visit Start Time 09:51 Visit Stop Time 10:35 Visit Number 5 Number of REGISTERED MIDWIFE Visits 1 Evaluation Information Evaluation Date 12/04/24 PT-OP-B Current Condition Start: 12/04/24 10:39 Freq: Status: Active Protocol: Document 12/04/24 10:42 EDGE CUTTING MACHINE OPERATOR (Rec: 12/04/24 11:34 EDGE CUTTING MACHINE OPERATOR Laptop) Current Condition History of Current Condition History of Current Pt amb into session without AD, slightly unsteady but Condition with normal speed and without LOB. 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 He reports he feels a little bit slower in his older age but doesn't notice any big issues while moving and doing ADLs and does not have any pains. Pt reports his only fall was a few years ago when he was carrying an armload full of stuff down the stairs to his deck but did not have an injury. Pt lives in multi level house with a loft and deck with spouse and reports no issues navigating stairs but lightly uses HR. Pt is moderately active, likes to fish on boat and hike, uses a hiking pole when hiking. Treatment Goals Patient/Caregiver To see whether or not there are problems to improve Goals PT-OP-C Subjective Start: 12/04/24 10:39 Freq: Status: Active Protocol: Document 01/06/25 10:30 AB (Rec: 01/06/25 10:45 AB Laptop) OP-PT Subjective Patient Comments Patient Comments Patient reports is not longer complaining of him scuffing the floor. PT-OP-D Balance Start: 12/04/24 10:39 Freq: Status: Active Protocol: Document 12/04/24 10:42 EDGE CUTTING MACHINE OPERATOR (Rec: 12/04/24 11:34 EDGE CUTTING MACHINE OPERATOR Laptop) Balance Tests Romberg Romberg slightly unsteady but without LOB 30s Single Limb Standing Single Limb- Right 3 Single Limb- Left 3 Calvo Balance Assessment Evaluation Sitting to Standing Independent w/out Hands Ability Unsupported Stance Safely- 2 minutes Sitting Unsupported, Safely- 2 minutes Feet on Floor Standing to Sitting Safely, Minimal Hand Use Ability Transfer Ability Safely, Minimal Hand Use Unsupported Stance- Supervision, 10 seconds Eyes Closed Unsupported Stance- Independent, 1 minute Eyes Open Reaching Forward Confidently, 10 inches Standing Pick- Up Object From Independent/Safe Floor Look Behind Shoulder Shifts Weight Well - Standing Turning 360 Degrees Turns , < 4 secs Unsupported Tandem Holds Tandem- 30 seconds Stance Unilateral Leg Lifts Leg/Unable to Hold Stance Total Score Calvo Total Score ( 46 out of 56 points) PT-OP-E Functional Tests Start: 12/04/24 10:39 Freq: Status: Active Protocol: Document 12/04/24 10:42 EDGE CUTTING MACHINE OPERATOR (Rec: 12/04/24 11:34 EDGE CUTTING MACHINE OPERATOR Laptop) Functional Tests 30 Second Sit to Stand Test Score 13 Comments without UEs PT-OP-G Mobility & Gait Start: 12/04/24 10:39 Freq: Status: Active Protocol: Document 12/04/24 10:42 EDGE CUTTING MACHINE OPERATOR (Rec: 12/04/24 11:34 EDGE CUTTING MACHINE OPERATOR Laptop) OP Gait Assessment Comments Gait Comments L hip drop, decreased B toe clearance R>L, narrow ROBERT with ocasional scissoring PT-OP-M Strength Start: 12/04/24 10:39 Freq: Status: Active Protocol: Document 12/04/24 10:42 EDGE CUTTING MACHINE OPERATOR (Rec: 12/04/24 11:34 EDGE CUTTING MACHINE OPERATOR Laptop) Hip Strength Hip Manual Muscle Testing L Flexion (L2) 4+ Good+ Extension (S1) 4- Good- Abduction 4+ Good+ External Rotation 4 Good Internal Rotation 4- Good- R Flexion (L2) 5 Normal Extension (S1) 4- Good- Abduction 4 Good External Rotation 4 Good Internal Rotation 4- Good- Knee Strength Knee Manual Muscle Testing L Flexion (S2) 4+ Good+ Extension (L3) 4+ Good+ R Flexion (S2) 5 Normal Extension (L3) 5 Normal Ankle/Foot Strength Ankle and Foot Manual Muscle Testing L Dorsiflexion (L4) 4 Good R Dorsiflexion (L4) 4- Good- PT-OP-Q Treatments Start: 12/04/24 10:39 Freq: Status: Active Protocol: Document 01/06/25 10:30 AB (Rec: 01/06/25 10:45 AB Laptop) Gym Equipment Shuttle Balance Red [place] Details normal and stagger Reps/Duration 5 min Comments CGA while playing catch Therapeutic Exercises Sitting Exercises seated hip abd with band Side bilateral Resistance level 2 band Reps/Minutes one min X 1 Comments verbal cues Standing Exercises Gastroc Stretch Standing Exercise Jimmy and soleus Name Side bilateral Equipment Used at wall, on 4 inch step, on IGNACIO Reps/Minutes 1 min each LE each muscle, each version of stretch also step through on IGNACIO Comments and also Heel raise on step X 10 for IGNACIO step throughand heel raise Hip Ext Standing Exercise HEP Name Side bilateral Resistance level 2 band Reps/Minutes X 15 each LE Comments verbal cues for bracing and breathing during ex Hip Abd Standing Exercise HEP Name Side bilateral Resistance level 2 band Reps/Minutes X 15 Comments verbal cues to avoid toeing out Neuro Re-Education Treatment Balance Activities tandem stepping Details hands above \\ bars to use as needed CGA Reps/Duration 10 feet X 6 SLS Details CGA Reps/Duration X 3-4 X 2 then X 1 bilateral PT-OP-T Assessment and Plan Start: 12/04/24 10:39 Freq: Status: Active Protocol: Document 01/06/25 10:30 AB (Rec: 01/06/25 10:45 AB Laptop) Physical Therapy Assessment Goals 2. Impairment Balance Short Term Goal (STG Pt will perform 30s SLS on each LE to improve balance ) during functional mobility STG Duration 5 weeks Prison Goal (LTG) Pt will perform 60s SLS on each LE on foam to improve balance during functional mobility LTG Duration 10 weeks 1. Impairment Strength Impairment BLE weakness with emphasis on DF, hip abd, and hip ext Short Term Goal (STG Pt will improve B DF, hip abd, and hip ext strength by ) 1 MMT score to improve function STG Duration 5 weeks Lug Breaker And Wire Puller Goal (LTG) Pt will demonstrate improved gait 150' on even surface without AD with full foot clearance and without L hip drop LTG Duration 10 weeks Assessment Summary Assessment SLS continues to be limited but improved by end of session ie nearly doubled SLS L and R LE. Good return demonstration for hip abd and ext. Physical Therapy Plan Frequency and Duration Frequency of 1-2x/wk Treatment Duration of 10 treatment (weeks) Plan of Care Start 12/04/24 Date Plan of Care End 02/12/25 Date Next Visit Focus/Plan Next Note Type Progress Note Next Visit Plan Ball throws on shuttle balance, review standing B hip strengthening, shuttle recovery
--- NOTE | 2025-01-14 15:46 | PT.OTN ---
Current Diagnoses Foot drop, unspecified foot (01/14/25) Unspecified abnormalities of gait and mobility (01/14/25) Physical Therapy Treatment Note PT-OP-A Visit Information Start: 12/04/24 10:39 Freq: Status: Active Protocol: Document 01/14/25 14:34 AB (Rec: 01/14/25 15:36 AB [id number]) Out-Patient Physical Therapy Visit Information Visit Information Visit Type Treatment Note Visit Note [id number] Visit Start Time 14:35 Visit Stop Time 15:18 Visit Number 6 Number of ACO COORDINATOR Visits 2 Evaluation Information Evaluation Date 12/04/24 PT-OP-B Current Condition Start: 12/04/24 10:39 Freq: Status: Active Protocol: Document 12/04/24 10:42 DISK RECORDIST (Rec: 12/04/24 11:34 DISK RECORDIST Laptop) Current Condition History of Current Condition History of Current Pt amb into session without AD, slightly unsteady but Condition with normal speed and without LOB. 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 He reports he feels a little bit slower in his older age but doesn't notice any big issues while moving and doing ADLs and does not have any pains. Pt reports his only fall was a few years ago when he was carrying an armload full of stuff down the stairs to his deck but did not have an injury. Pt lives in multi level house with a loft and deck with spouse and reports no issues navigating stairs but lightly uses HR. Pt is moderately active, likes to fish on boat and hike, uses a hiking pole when hiking. Treatment Goals Patient/Caregiver To see whether or not there are problems to improve Goals PT-OP-C Subjective Start: 12/04/24 10:39 Freq: Status: Active Protocol: Document 01/14/25 14:34 AB (Rec: 01/14/25 15:36 AB [id number]) OP-PT Subjective Patient Comments Patient Comments Patient reports he didn't do his exercises due to 3 and 6 year old grandchildren were visiting. Patient reports the foot scuffing is the same, ( compared to last week ) but better overall. PT-OP-D Balance Start: 12/04/24 10:39 Freq: Status: Active Protocol: Document 01/14/25 14:34 AB (Rec: 01/14/25 15:43 AB [id number]) Balance Tests Single Limb Standing Single Limb- Right 3,1,1 Single Limb- Left 3,4,5 PT-OP-E Functional Tests Start: 12/04/24 10:39 Freq: Status: Active Protocol: Document 12/04/24 10:42 DISK RECORDIST (Rec: 12/04/24 11:34 DISK RECORDIST Laptop) Functional Tests 30 Second Sit to Stand Test Score 13 Comments without UEs PT-OP-G Mobility & Gait Start: 12/04/24 10:39 Freq: Status: Active Protocol: Document 12/04/24 10:42 DISK RECORDIST (Rec: 12/04/24 11:34 DISK RECORDIST Laptop) OP Gait Assessment Comments Gait Comments L hip drop, decreased B toe clearance R>L, narrow ROBERT with ocasional scissoring PT-OP-M Strength Start: 12/04/24 10:39 Freq: Status: Active Protocol: Document 01/14/25 14:34 AB (Rec: 01/14/25 15:40 AB [id number]) Hip Strength Hip Manual Muscle Testing L Extension (S1) 3+ Fair+ Abduction 4+ Good+ R Extension (S1) 3+ Fair+ Abduction 4 Good Ankle/Foot Strength Ankle and Foot Manual Muscle Testing L Dorsiflexion (L4) 4+ Good+ R Dorsiflexion (L4) 5 Normal PT-OP-Q Treatments Start: 12/04/24 10:39 Freq: Status: Active Protocol: Document 01/14/25 14:34 AB (Rec: 01/14/25 15:36 AB [id number]) Therapeutic Exercises Supine Exercises Hip Flexor Stretch Supine Exercise Name Hanging LLE off of table with knee flex X 10 Side left Reps/Minutes 1 min then knee flexion X 10 each LE X 2 Comments verbal cues HEP Sitting Exercises seated hip abd with band Sitting Exercise SLS 14 sec R LE post Glute act and L LE 2 sec HEP Name Side bilateral Resistance level 4 band Reps/Minutes one min X 1 Comments verbal cues Standing Exercises Gastroc Stretch Standing Exercise Jimmy and soleus on step Name Side bilateral Comments 60 sec knees straight then bent X 2 then HR X 10 X 2 Hip Ext Standing Exercise HEP Name Side bilateral Resistance level 4 band Reps/Minutes X 15 each LE Comments verbal cues for bracing and breathing during ex Hip Abd Standing Exercise HEP Name Side bilateral Resistance level 4 band Reps/Minutes X 15 Comments verbal cues to avoid toeing out PT-OP-T Assessment and Plan Start: 12/04/24 10:39 Freq: Status: Active Protocol: Document 01/14/25 14:34 AB (Rec: 01/14/25 15:36 AB [id number]) Physical Therapy Assessment Goals 2. Impairment Balance Short Term Goal (STG Pt will perform 30s SLS on each LE to improve balance ) during functional mobility SLS R 3,4,5 L 3, 1,1 STG Duration 5 weeks Alf Goal (LTG) Pt will perform 60s SLS on each LE on foam to improve balance during functional mobility LTG Duration 10 weeks 1. Impairment Strength Impairment BLE weakness with emphasis on DF, hip abd, and hip ext Short Term Goal (STG Pt will improve B DF, hip abd, and hip ext strength by ) 1 MMT score to improve function STG Duration 5 weeks Mammalogist Goal (LTG) Pt will demonstrate improved gait 150' on even surface without AD with full foot clearance and without L hip drop LTG Duration 10 weeks Assessment Summary Assessment SLS continues to be limited L>R LE, improved post glute med activation/significant improvement R LE.DF L increased from 4 to 4+ and DF right from 4- to 5, no change in hip strength. Physical Therapy Plan Frequency and Duration Frequency of 1-2x/wk Treatment Duration of 10 treatment (weeks) Plan of Care Start 12/04/24 Date Plan of Care End 02/12/25 Date Next Visit Focus/Plan Next Note Type Treatment Note Next Visit Plan Ball throws on shuttle balance, review standing B hip strengthening, shuttle recovery
--- NOTE | 2025-01-14 18:00 | PT.OPPN ---
Current Diagnoses Foot drop, unspecified foot (01/14/25) Unspecified abnormalities of gait and mobility (01/14/25) Physical Therapy Progress Note PT-OP-A Visit Information Start: 12/04/24 10:39 Freq: Status: Active Protocol: Document 01/14/25 18:00 ASSISTANT MEDIA BUYER (Rec: 01/17/25 12:44 ASSISTANT MEDIA BUYER Laptop) Out-Patient Physical Therapy Visit Information Visit Information Visit Type Progress Note Evaluation Information Evaluation Date 12/04/24 PT-OP-B Current Condition Start: 12/04/24 10:39 Freq: Status: Active Protocol: Document 12/04/24 10:42 ASSISTANT MEDIA BUYER (Rec: 12/04/24 11:34 ASSISTANT MEDIA BUYER Laptop) Current Condition History of Current Condition History of Current Pt amb into session without AD, slightly unsteady but Condition with normal speed and without LOB. 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 He reports he feels a little bit slower in his older age but doesn't notice any big issues while moving and doing ADLs and does not have any pains. Pt reports his only fall was a few years ago when he was carrying an armload full of stuff down the stairs to his deck but did not have an injury. Pt lives in multi level house with a loft and deck with spouse and reports no issues navigating stairs but lightly uses HR. Pt is moderately active, likes to fish on boat and hike, uses a hiking pole when hiking. Treatment Goals Patient/Caregiver To see whether or not there are problems to improve Goals PT-OP-C Subjective Start: 12/04/24 10:39 Freq: Status: Active Protocol: Document 01/14/25 14:34 AB (Rec: 01/14/25 15:36 AB [id number]) OP-PT Subjective Patient Comments Patient Comments Patient reports he didn't do his exercises due to 3 and 6 year old grandchildren were visiting. Patient reports the foot scuffing is the same, ( compared to last week ) but better overall. PT-OP-D Balance Start: 12/04/24 10:39 Freq: Status: Active Protocol: Document 01/14/25 14:34 AB (Rec: 01/14/25 15:43 AB [id number]) Balance Tests Single Limb Standing Single Limb- Right 3,1,1 Single Limb- Left 3,4,5 PT-OP-E Functional Tests Start: 12/04/24 10:39 Freq: Status: Active Protocol: Document 12/04/24 10:42 ASSISTANT MEDIA BUYER (Rec: 12/04/24 11:34 ASSISTANT MEDIA BUYER Laptop) Functional Tests 30 Second Sit to Stand Test Score 13 Comments without UEs PT-OP-G Mobility & Gait Start: 12/04/24 10:39 Freq: Status: Active Protocol: Document 12/04/24 10:42 ASSISTANT MEDIA BUYER (Rec: 12/04/24 11:34 ASSISTANT MEDIA BUYER Laptop) OP Gait Assessment Comments Gait Comments L hip drop, decreased B toe clearance R>L, narrow ROBERT with ocasional scissoring PT-OP-M Strength Start: 12/04/24 10:39 Freq: Status: Active Protocol: Document 01/14/25 14:34 AB (Rec: 01/14/25 15:40 AB [id number]) Hip Strength Hip Manual Muscle Testing L Extension (S1) 3+ Fair+ Abduction 4+ Good+ R Extension (S1) 3+ Fair+ Abduction 4 Good Ankle/Foot Strength Ankle and Foot Manual Muscle Testing L Dorsiflexion (L4) 4+ Good+ R Dorsiflexion (L4) 5 Normal PT-OP-T Assessment and Plan Start: 12/04/24 10:39 Freq: Status: Active Protocol: Document 01/14/25 18:00 ASSISTANT MEDIA BUYER (Rec: 01/17/25 12:44 ASSISTANT MEDIA BUYER Laptop) Physical Therapy Assessment Impairments Impairments Balance,Gait,Strength Goals 2. Impairment Balance Short Term Goal (STG Pt will perform 30s SLS on each LE to improve balance ) during functional mobility SLS R 3,4,5 L 3, 1,1 STG Duration 5 weeks Detention Goal (LTG) Pt will perform 60s SLS on each LE on foam to improve balance during functional mobility LTG Duration 10 weeks 1. Impairment Strength Impairment BLE weakness with emphasis on DF, hip abd, and hip ext Short Term Goal (STG Pt will improve B DF, hip abd, and hip ext strength by ) 1 MMT score to improve function STG Duration 5 weeks Detention Goal (LTG) Pt will demonstrate improved gait 150' on even surface without AD with full foot clearance and without L hip drop LTG Duration 10 weeks Assessment Summary Assessment Pt is making slow progress towards goals, continues to be limited in SLS, has made progress towards L DF strength from 4 to 4+ and L DF from 4- to 5 but continues to be limited in B hip strength. Pt will require continued PT intervention to continue progressing towards goals with emphasis on SLS and B hip strength. Physical Therapy Plan Frequency and Duration Frequency of 1-2x/wk Treatment Duration of 10 treatment (weeks) Plan of Care Start 12/04/24 Date Plan of Care End 02/12/25 Date Therapeutic Interventions Therapeutic Balance Training,Gait Training,Home Exercise Program, Interventions Manual Therapy,Neuromuscular Re-education,Patient/ Caregiver Education,Soft Tissue Mobilization, Therapeutic Activities,Therapeutic Exercises Modalities Cold Pack/Ice Massage,Hot Packs,Ultrasound
--- NOTE | 2025-01-21 12:24 | PT.OTN ---
Current Diagnoses Foot drop, unspecified foot (01/21/25) Unspecified abnormalities of gait and mobility (01/21/25) Physical Therapy Treatment Note PT-OP-A Visit Information Start: 12/04/24 10:39 Freq: Status: Active Protocol: Document 01/21/25 10:46 AB (Rec: 01/21/25 11:33 AB [id number]) Out-Patient Physical Therapy Visit Information Visit Information Visit Type Treatment Note Visit Note [id number] Visit Start Time 10:49 Visit Stop Time 11:30 Visit Number 7 (PN by 02/12/2025) Number of MEAT STOCK CLERK Visits 3 Evaluation Information Evaluation Date 12/04/24 PT-OP-B Current Condition Start: 12/04/24 10:39 Freq: Status: Active Protocol: Document 12/04/24 10:42 RENAL DIETITIAN (Rec: 12/04/24 11:34 RENAL DIETITIAN Laptop) Current Condition History of Current Condition History of Current Pt amb into session without AD, slightly unsteady but Condition with normal speed and without LOB. 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 He reports he feels a little bit slower in his older age but doesn't notice any big issues while moving and doing ADLs and does not have any pains. Pt reports his only fall was a few years ago when he was carrying an armload full of stuff down the stairs to his deck but did not have an injury. Pt lives in multi level house with a loft and deck with spouse and reports no issues navigating stairs but lightly uses HR. Pt is moderately active, likes to fish on boat and hike, uses a hiking pole when hiking. Treatment Goals Patient/Caregiver To see whether or not there are problems to improve Goals PT-OP-C Subjective Start: 12/04/24 10:39 Freq: Status: Active Protocol: Document 01/21/25 10:46 AB (Rec: 01/21/25 11:33 AB [id number]) OP-PT Subjective Patient Comments Patient Comments Patient reports he had a diverticulitis flare for a couple of days and wasn't able to perform HEP. PT-OP-D Balance Start: 12/04/24 10:39 Freq: Status: Active Protocol: Document 01/14/25 14:34 AB (Rec: 01/14/25 15:43 AB [id number]) Balance Tests Single Limb Standing Single Limb- Right 3,1,1 Single Limb- Left 3,4,5 PT-OP-E Functional Tests Start: 12/04/24 10:39 Freq: Status: Active Protocol: Document 12/04/24 10:42 RENAL DIETITIAN (Rec: 12/04/24 11:34 RENAL DIETITIAN Laptop) Functional Tests 30 Second Sit to Stand Test Score 13 Comments without UEs PT-OP-G Mobility & Gait Start: 12/04/24 10:39 Freq: Status: Active Protocol: Document 12/04/24 10:42 RENAL DIETITIAN (Rec: 12/04/24 11:34 RENAL DIETITIAN Laptop) OP Gait Assessment Comments Gait Comments L hip drop, decreased B toe clearance R>L, narrow ROBERT with ocasional scissoring PT-OP-M Strength Start: 12/04/24 10:39 Freq: Status: Active Protocol: Document 01/14/25 14:34 AB (Rec: 01/14/25 15:40 AB [id number]) Hip Strength Hip Manual Muscle Testing L Extension (S1) 3+ Fair+ Abduction 4+ Good+ R Extension (S1) 3+ Fair+ Abduction 4 Good Ankle/Foot Strength Ankle and Foot Manual Muscle Testing L Dorsiflexion (L4) 4+ Good+ R Dorsiflexion (L4) 5 Normal PT-OP-Q Treatments Start: 12/04/24 10:39 Freq: Status: Active Protocol: Document 01/21/25 10:46 AB (Rec: 01/21/25 11:33 AB [id number]) Gym Equipment Shuttle Balance [place] Details normal and stagger Reps/Duration 5 min Comments CGA while playing catch normal head turns for stagger and normal Therapeutic Exercises Sitting Exercises seated hip abd with band Sitting Exercise SLS R LE 24 sec L LE 4 sec pre glute act, L SLS 14 sec Name post glute act Side bilateral Resistance level 4 band Reps/Minutes one min X 1 Comments verbal cues Standing Exercises bilateral heel raise Reps/Minutes X 15 on step with UE support Comments Verbal cues to lower slowly sit to stand with band Standing Exercise HEP Name Side bilateral Resistance level 4 band Reps/Minutes X 10 X 2 Comments Pt ed mech sit to stand, monitored for pain Gastroc Stretch Standing Exercise Jimmy and soleus on step Name Side bilateral Comments 60 sec knees straight then bent X 2 then step thru X 10 Neuro Re-Education Treatment Balance Activities tilt board. Details AP and lat Reps/Duration X 15 Comments hands above bars CGA tandem stepping Details hands above \\ bars to use as needed S Reps/Duration 10 feet X 6 SLS Details CGA Reps/Duration X 3-4 X 2 then X 1 bilateral Foam Details step up taps to 6 inch step CGA Surface foam Reps/Duration X 12 PT-OP-T Assessment and Plan Start: 12/04/24 10:39 Freq: Status: Active Protocol: Document 01/21/25 10:46 AB (Rec: 01/21/25 11:33 AB [id number]) Physical Therapy Assessment Goals 2. Impairment Balance Short Term Goal (STG Pt will perform 30s SLS on each LE to improve balance ) during functional mobility SLS R 3,4,5 L 3, 1,1 STG Duration 5 weeks Assisted Goal (LTG) Pt will perform 60s SLS on each LE on foam to improve balance during functional mobility LTG Duration 10 weeks 1. Impairment Strength Impairment BLE weakness with emphasis on DF, hip abd, and hip ext Short Term Goal (STG Pt will improve B DF, hip abd, and hip ext strength by ) 1 MMT score to improve function STG Duration 5 weeks [facility] Goal (LTG) Pt will demonstrate improved gait 150' on even surface without AD with full foot clearance and without L hip drop LTG Duration 10 weeks Assessment Summary Assessment SLS L LE inc to 4 sec start of session compared to 1 sec previous session and post glute med activation 14 seconds. Physical Therapy Plan Frequency and Duration Frequency of 1-2x/wk Treatment Duration of 10 treatment (weeks) Plan of Care Start 12/04/24 Date Plan of Care End 02/12/25 Date Next Visit Focus/Plan Next Note Type Treatment Note Next Visit Plan Ball throws on shuttle balance, review standing B hip strengthening, shuttle recovery
--- NOTE | 2025-01-26 11:33 | PT.OTN ---
Current Diagnoses Foot drop, unspecified foot (01/26/25) Unspecified abnormalities of gait and mobility (01/26/25) Physical Therapy Treatment Note PT-OP-A Visit Information Start: 12/04/24 10:39 Freq: Status: Active Protocol: Document 01/26/25 10:51 TRANSFER ENGINEER (Rec: 01/26/25 11:33 TRANSFER ENGINEER Laptop) Out-Patient Physical Therapy Visit Information Visit Information Visit Type Treatment Note Visit Start Time 10:51 Visit Stop Time 11:30 Visit Number 8 Number of STRAND AND BINDER CONTROLLER Visits 0 Evaluation Information Evaluation Date 12/04/24 PT-OP-B Current Condition Start: 12/04/24 10:39 Freq: Status: Active Protocol: Document 12/04/24 10:42 TRANSFER ENGINEER (Rec: 12/04/24 11:34 TRANSFER ENGINEER Laptop) Current Condition History of Current Condition History of Current Pt amb into session without AD, slightly unsteady but Condition with normal speed and without LOB. reports his has noticed he doesn't hot die picker his feet when he walks, as noticed by scuff da silva on the floor. He reports he feels a little bit slower in his older age but doesn't notice any big issues while moving and doing ADLs and does not have any pains. Pt reports his only fall was a few years ago when he was carrying an armload full of stuff down the stairs to his deck but did not have an injury. Pt lives in multi level house with a loft and deck with spouse and reports no issues navigating stairs but lightly uses HR. Pt is moderately active, likes to fish on boat and hike, uses a hiking pole when hiking. Treatment Goals Patient/Caregiver To see whether or not there are problems to improve Goals PT-OP-C Subjective Start: 12/04/24 10:39 Freq: Status: Active Protocol: Document 01/26/25 10:51 TRANSFER ENGINEER (Rec: 01/26/25 11:33 TRANSFER ENGINEER Laptop) OP-PT Subjective Patient Comments Patient Comments Pt reports he notices improvements in his balance when he focuses, but otherwise is hard for him to notice his progress. PT-OP-D Balance Start: 12/04/24 10:39 Freq: Status: Active Protocol: Document 01/14/25 14:34 AB (Rec: 01/14/25 15:43 AB [id number]) Balance Tests Single Limb Standing Single Limb- Right 3,1,1 Single Limb- Left 3,4,5 PT-OP-E Functional Tests Start: 12/04/24 10:39 Freq: Status: Active Protocol: Document 12/04/24 10:42 TRANSFER ENGINEER (Rec: 12/04/24 11:34 TRANSFER ENGINEER Laptop) Functional Tests 30 Second Sit to Stand Test Score 13 Comments without UEs PT-OP-G Mobility & Gait Start: 12/04/24 10:39 Freq: Status: Active Protocol: Document 12/04/24 10:42 TRANSFER ENGINEER (Rec: 12/04/24 11:34 TRANSFER ENGINEER Laptop) OP Gait Assessment Comments Gait Comments L hip drop, decreased B toe clearance R>L, narrow ROBERT with ocasional scissoring PT-OP-M Strength Start: 12/04/24 10:39 Freq: Status: Active Protocol: Document 01/14/25 14:34 AB (Rec: 01/14/25 15:40 AB [id number]) Hip Strength Hip Manual Muscle Testing L Extension (S1) 3+ Fair+ Abduction 4+ Good+ R Extension (S1) 3+ Fair+ Abduction 4 Good Ankle/Foot Strength Ankle and Foot Manual Muscle Testing L Dorsiflexion (L4) 4+ Good+ R Dorsiflexion (L4) 5 Normal PT-OP-Q Treatments Start: 12/04/24 10:39 Freq: Status: Active Protocol: Document 01/26/25 10:51 TRANSFER ENGINEER (Rec: 01/26/25 11:33 TRANSFER ENGINEER Laptop) Cardio Equipment Recumbent Stepper (Sci-Fit) Duration (Minutes) 5 Resistance L7 Seat Position 7 Other NuStep BLEs only for strength/endurance Gym Equipment Shuttle Balance Red [place] Details normal ant/post stance Reps/Duration 10 mins Comments CGA while playing catch with ball, batting balloon with UEs and with apryl Therapeutic Exercises Standing Exercises Squats Resistance L4 TB around knees Reps/Minutes 10x2 Comments TC for form-weight shift through heels Neuro Re-Education Treatment Balance Activities hurdles Details CGA Surface even Comments sidestepping R and L, forwards, backwards no LOB Foam Details step up taps to 12 step CGA Surface foam Reps/Duration x10 each leg, alt x10 PT-OP-T Assessment and Plan Start: 12/04/24 10:39 Freq: Status: Active Protocol: Document 01/26/25 10:51 TRANSFER ENGINEER (Rec: 01/26/25 11:33 TRANSFER ENGINEER Laptop) Physical Therapy Assessment Impairments Impairments Balance,Gait,Strength Goals 2. Impairment Balance Short Term Goal (STG Pt will perform 30s SLS on each LE to improve balance ) during functional mobility SLS R 3,4,5 L 3, 1,1 STG Duration 5 weeks Auto Accessories Installer Goal (LTG) Pt will perform 60s SLS on each LE on foam to improve balance during functional mobility LTG Duration 10 weeks 1. Impairment Strength Impairment BLE weakness with emphasis on DF, hip abd, and hip ext Short Term Goal (STG Pt will improve B DF, hip abd, and hip ext strength by ) 1 MMT score to improve function STG Duration 5 weeks Alf Goal (LTG) Pt will demonstrate improved gait 150' on even surface without AD with full foot clearance and without L hip drop LTG Duration 10 weeks Assessment Summary Assessment Pt tolerated all balance training well without LOB, CGA Physical Therapy Plan Frequency and Duration Frequency of 1-2x/wk Treatment Duration of 10 treatment (weeks) Plan of Care Start 12/04/24 Date Plan of Care End 02/12/25 Date Therapeutic Interventions Therapeutic Balance Training,Gait Training,Home Exercise Program, Interventions Manual Therapy,Neuromuscular Re-education,Patient/ Caregiver Education,Soft Tissue Mobilization, Therapeutic Activities,Therapeutic Exercises Modalities Cold Pack/Ice Massage,Hot Packs,Ultrasound Next Visit Focus/Plan Next Note Type Treatment Note Next Visit Plan standing balance training, B hip strengthening
--- NOTE | 2025-02-12 13:46 | PT.OTN ---
Current Diagnoses Foot drop, unspecified foot (02/12/25) Unspecified abnormalities of gait and mobility (02/12/25) Physical Therapy Treatment Note PT-OP-A Visit Information Start: 12/04/24 10:39 Freq: Status: Active Protocol: Document 02/12/25 10:57 MANAGER VEHICLE (Rec: 02/12/25 11:03 MANAGER VEHICLE Laptop) Out-Patient Physical Therapy Visit Information Visit Information Visit Type Progress Note Visit Start Time 10:49 Visit Stop Time 11:34 Visit Number 9 Number of SENIOR PACKAGING ENGINEER Visits 0 PT-OP-B Current Condition Start: 12/04/24 10:39 Freq: Status: Active Protocol: Document 12/04/24 10:42 MANAGER VEHICLE (Rec: 12/04/24 11:34 MANAGER VEHICLE Laptop) Current Condition History of Current Condition History of Current Pt amb into session without AD, slightly unsteady but Condition with normal speed and without LOB. 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 He reports he feels a little bit slower in his older age but doesn't notice any big issues while moving and doing ADLs and does not have any pains. Pt reports his only fall was a few years ago when he was carrying an armload full of stuff down the stairs to his deck but did not have an injury. Pt lives in multi level house with a loft and deck with spouse and reports no issues navigating stairs but lightly uses HR. Pt is moderately active, likes to fish on boat and hike, uses a hiking pole when hiking. Treatment Goals Patient/Caregiver To see whether or not there are problems to improve Goals PT-OP-C Subjective Start: 12/04/24 10:39 Freq: Status: Active Protocol: Document 02/12/25 10:57 MANAGER VEHICLE (Rec: 02/12/25 11:03 MANAGER VEHICLE Laptop) OP-PT Subjective Patient Comments Patient Comments Pt reports he has been alt days for stretching and strengthening HEP with no questions. Notes improvement in balance when on boat. Current pain 0/10. PT-OP-D Balance Start: 12/04/24 10:39 Freq: Status: Active Protocol: Document 01/14/25 14:34 AB (Rec: 01/14/25 15:43 AB [id number]) Balance Tests Single Limb Standing Single Limb- Right 3,1,1 Single Limb- Left 3,4,5 PT-OP-E Functional Tests Start: 12/04/24 10:39 Freq: Status: Active Protocol: Document 12/04/24 10:42 MANAGER VEHICLE (Rec: 12/04/24 11:34 MANAGER VEHICLE Laptop) Functional Tests 30 Second Sit to Stand Test Score 13 Comments without UEs PT-OP-G Mobility & Gait Start: 12/04/24 10:39 Freq: Status: Active Protocol: Document 12/04/24 10:42 MANAGER VEHICLE (Rec: 12/04/24 11:34 MANAGER VEHICLE Laptop) OP Gait Assessment Comments Gait Comments L hip drop, decreased B toe clearance R>L, narrow ROBERT with ocasional scissoring PT-OP-M Strength Start: 12/04/24 10:39 Freq: Status: Active Protocol: Document 02/12/25 10:57 MANAGER VEHICLE (Rec: 02/12/25 11:21 MANAGER VEHICLE Laptop) Hip Strength Hip Manual Muscle Testing L Flexion (L2) 5 Normal Extension (S1) 5 Normal Abduction 4+ Good+ External Rotation 4+ Good+ Internal Rotation 5 Normal R Flexion (L2) 5 Normal Extension (S1) 5 Normal Abduction 5 Normal External Rotation 4+ Good+ Internal Rotation 4+ Good+ Knee Strength Knee Manual Muscle Testing L Flexion (S2) 5 Normal Extension (L3) 5 Normal R Flexion (S2) 5 Normal Extension (L3) 5 Normal Ankle/Foot Strength Ankle and Foot Manual Muscle Testing L Dorsiflexion (L4) 4+ Good+ R Dorsiflexion (L4) 4+ Good+ PT-OP-Q Treatments Start: 12/04/24 10:39 Freq: Status: Active Protocol: Document 02/12/25 10:57 MANAGER VEHICLE (Rec: 02/13/25 13:34 MANAGER VEHICLE Laptop) Gait Training Gait Activity GT even surface Surface even Comments minimal L hip Trendelenburg noted but improved, x1 small catch of R toes on floor with self correction and no LOB Neuro Re-Education Treatment Balance Activities SLS Surface even Comments R 5, 3, 2s L 3, 3, 1s PT-OP-T Assessment and Plan Start: 12/04/24 10:39 Freq: Status: Active Protocol: Document 02/12/25 10:57 MANAGER VEHICLE (Rec: 02/12/25 11:03 MANAGER VEHICLE Laptop) Physical Therapy Assessment Goals 2. Impairment Balance Short Term Goal (STG Pt will perform 30s SLS on each LE to improve balance ) during functional mobility SLS R 3,4,5 L 3, 1,1 02/12: Progressing, R 5, 3, 2 L 3, 3, 1 STG Duration 8 weeks Custodial Goal (LTG) Pt will perform 60s SLS on each LE on foam to improve balance during functional mobility LTG Duration 16 weeks 1. Impairment Strength Impairment BLE weakness with emphasis on DF, hip abd, and hip ext Short Term Goal (STG Pt will improve B DF, hip abd, and hip ext strength by ) 1 MMT score to improve function 02/12: Progressing, met in all areas except L hip abd remained 4+/5 STG Duration 8 weeks [place] Goal (LTG) Pt will demonstrate improved gait 150' on even surface without AD with full foot clearance and without L hip drop 02/12: Progressing, very minimal L hip drop and x1 catch of R toes on floor LTG Duration 16 weeks Assessment Summary Assessment Pt is progressing towards goals with improved strength in all muscle groups of BLEs except L hip abd remains at 4+/5, improved hip strength and R DF clearance during gait except still with minimal deficits and x1 catch of R toes on floor, balance via SLS remains about the same. Pt will continue to benefit from skilled PT intervention to progress towards and meet all goals with focus on balance training and soft tissue mobilization of R gastroc. Dates of POC extended x6 more weeks. Physical Therapy Plan Frequency and Duration Frequency of 1-2x/wk Treatment Duration of 16 treatment (weeks) Plan of Care Start 12/04/24 Date Plan of Care End 03/26/25 Date Next Visit Focus/Plan Next Note Type Treatment Note Next Visit Plan modified SLS with HEP, STM to R gastroc
--- NOTE | 2025-02-12 13:47 | PT.OPPOC ---
Physical, Occupational & Speech Therapy At Current Diagnoses Foot drop, unspecified foot (02/12/25) Unspecified abnormalities of gait and mobility (02/12/25) Visit Care Team Role Provider Type Jazmyn Pulido DO Attending Provider Physician Family Provider Primary Care Provider Referring Provider Specialty: Medical Address: [address] [place] [address], [address], [place], [address] Email: [email or web address] Plan Of Care PT-OP-B Current Condition Start: 12/04/24 10:39 Freq: Status: Active Protocol: Document 12/04/24 10:42 COMMERCIAL INSULATOR (Rec: 12/04/24 11:34 COMMERCIAL INSULATOR Laptop) Current Condition History of Current Condition History of Current Pt amb into session without AD, slightly unsteady but Condition with normal speed and without LOB. 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 He reports he feels a little bit slower in his older age but doesn't notice any big issues while moving and doing ADLs and does not have any pains. Pt reports his only fall was a few years ago when he was carrying an armload full of stuff down the stairs to his deck but did not have an injury. Pt lives in multi level house with a loft and deck with spouse and reports no issues navigating stairs but lightly uses HR. Pt is moderately active, likes to fish on boat and hike, uses a hiking pole when hiking. Treatment Goals Patient/Caregiver To see whether or not there are problems to improve Goals PT-OP-T Assessment and Plan Start: 12/04/24 10:39 Freq: Status: Active Protocol: Document 02/12/25 10:57 COMMERCIAL INSULATOR (Rec: 02/12/25 11:03 COMMERCIAL INSULATOR Laptop) Physical Therapy Assessment Goals 2. Impairment Balance Short Term Goal (STG Pt will perform 30s SLS on each LE to improve balance ) during functional mobility SLS R 3,4,5 L 3, 1,1 8/1: Progressing, R 5, 3, 2 L 3, 3, 1 STG Duration 8 weeks Assisted Goal (LTG) Pt will perform 60s SLS on each LE on foam to improve balance during functional mobility LTG Duration 16 weeks 1. Impairment Strength Impairment BLE weakness with emphasis on DF, hip abd, and hip ext Short Term Goal (STG Pt will improve B DF, hip abd, and hip ext strength by ) 1 MMT score to improve function 02/12: Progressing, met in all areas except L hip abd remained 4+/5 STG Duration 8 weeks Assisted Goal (LTG) Pt will demonstrate improved gait 150' on even surface without AD with full foot clearance and without L hip drop 02/12: Progressing, very minimal L hip drop and x1 catch of R toes on floor LTG Duration 16 weeks Assessment Summary Assessment Pt is progressing towards goals with improved strength in all muscle groups of BLEs except L hip abd remains at 4+/5, improved hip strength and R DF clearance during gait except still with minimal deficits and x1 catch of R toes on floor, balance via SLS remains about the same. Pt will continue to benefit from skilled PT intervention to progress towards and meet all goals with focus on balance training and soft tissue mobilization of R gastroc. Dates of POC extended x6 more weeks. Physical Therapy Plan Frequency and Duration Frequency of 1-2x/wk Treatment Duration of 16 treatment (weeks) Plan of Care Start 12/04/24 Date Plan of Care End 03/26/25 Date Next Visit Focus/Plan Next Note Type Treatment Note Next Visit Plan modified SLS with HEP, STM to R gastroc Plan of Care Dates Plan of Care Start Date 12/04/24 Plan of Care End Date 03/26/25 Electronically Signed by: Harini Rangel, PT 02/13/25 9042 If you are in agreement with this Plan of Care, please return a signed and dated copy. I have reviewed this Plan of Care and certify that the skilled therapy services above are required to meet the patient?s needs. Physician Signature Date Printed Name and Credentials Clinical Instructor Signature Printed Name and Credentials
--- NOTE | 2025-02-17 10:09 | PT-OP ANOTE ---
Phoned patient regarding schedule has him both scheduled and canceled for 1300 today. Patient confirmed he will be attending today's appointment at 1300.
--- NOTE | 2025-02-17 13:48 | PT.OTN ---
Current Diagnoses Foot drop, unspecified foot (02/17/25) Unspecified abnormalities of gait and mobility (02/17/25) Physical Therapy Treatment Note PT OP: Lower Back/Lower Extremity Start: 02/17/25 10:02 Freq: Status: Active Protocol: Document 02/17/25 13:00 AB (Rec: 02/17/25 13:48 AB [id number]) Out-Patient Physical Therapy Visit Information Visit Information Visit Type Treatment Note Visit Note [id number] Visit Start Time 13:02 Visit Stop Time 13:46 Visit Number 10 Number of DEVELOPING MACHINE OPERATOR Visits 1 Progress Note Due 03/14/25 OP-PT Subjective Patient Comments Patient Comments Patient reports he feels a little better, but isn't sure balance is better, but is able to move with the boat vs stumbling around. Gym Equipment Shuttle Balance Red [place] Details normal, romberg, stagger 5 min Comments catch with red ball from shuttle rebound CGA inc UE use with stagger stance Therapeutic Exercises Sitting Exercises DF Reps/Minutes X 15 X 2 Comments post stretches and manual Standing Exercises bilateral heel raise Reps/Minutes X 15 on step with UE support Comments Verbal cues to lower slowly Gastroc Stretch Standing Exercise Jimmy and soleus on step Name Side bilateral Comments 60 sec knees straight then bent X 2 Manual Therapy Treatment Consent Patient gave verbal Yes consent for manual treatment Soft Tissue Mobilization R calf Mobilization Type Cross-Friction,Instrument Assisted,Rolling Intensity/Depth Moderate Body Position Prone Comments PF DF X 15 with cups on gastroc, standing - soleus, prone with knee flexed Neuro Re-Education Treatment Balance Activities 1/2 foam roller Details flat side up Reps/Duration 3 min Comments with and without UE use CGA SLS Surface even Comments R 6, 7, 3 L 3, 3, 2 ( post glute med activation 5, 4, 5) Physical Therapy Assessment Goals 2. Impairment Balance Short Term Goal (STG Pt will perform 30s SLS on each LE to improve balance ) during functional mobility SLS R 3,4,5 L 3, 1,1 02/12: Progressing, R 5, 3, 2 L 3, 3, 1 STG Duration 8 weeks Marketing Producer Goal (LTG) Pt will perform 60s SLS on each LE on foam to improve balance during functional mobility LTG Duration 16 weeks 1. Impairment Strength Impairment BLE weakness with emphasis on DF, hip abd, and hip ext Short Term Goal (STG Pt will improve B DF, hip abd, and hip ext strength by ) 1 MMT score to improve function 02/12: Progressing, met in all areas except L hip abd remained 4+/5 STG Duration 8 weeks Halfway Goal (LTG) Pt will demonstrate improved gait 150' on even surface without AD with full foot clearance and without L hip drop 02/12: Progressing, very minimal L hip drop and x1 catch of R toes on floor LTG Duration 16 weeks Assessment Summary Assessment Improved SLS L LE post glute med activation. Calf muscle stiffness continues to impact gait pattern, no complaints of pain for calf stretches or manual to calf muscles. Physical Therapy Plan Frequency and Duration Frequency of 1-2x/wk Treatment Duration of 16 treatment (weeks) Plan of Care Start 12/04/24 Date Plan of Care End 03/26/25 Date Next Visit Focus/Plan Next Note Type Treatment Note Next Visit Plan modified SLS with HEP, STM to R gastroc
--- NOTE | 2025-02-23 19:13 | PT.OTN ---
Current Diagnoses Foot drop, unspecified foot (02/23/25) Unspecified abnormalities of gait and mobility (02/23/25) Physical Therapy Treatment Note PT OP: Lower Back/Lower Extremity Start: 02/17/25 10:02 Freq: Status: Active Protocol: Document 02/23/25 17:08 DELI WORKER (Rec: 02/23/25 18:30 DELI WORKER Laptop) Out-Patient Physical Therapy Visit Information Visit Information Visit Type Treatment Note Visit Start Time 17:04 Visit Stop Time 17:43 Visit Number 11 Number of RADIO DIVISION CAPTAIN Visits 0 Progress Note Due 03/14/25 OP-PT Subjective Patient Comments Patient Comments Pt reports he was on a boat all day yesterday on [place] and his balance was really challenged. Therapeutic Exercises Standing Exercises Hip hike Standing Exercise on 4 stair Name Side bilateral Equipment Used mirror on first set for VC Reps/Minutes 10x2 Hip Abd Side bilateral Reps/Minutes x10 Comments VC for form Marching Side bilateral Reps/Minutes 10x2 Comments VC to keep pelvis level Gait Training Gait Activity GT on treadmill Device Used with and without HR use for balance Distance/Duration 10 mins Treatment Focus focus on B heel strike, B knee ext on heel strike, increased stride length Comments speed ranging between 0.3 and 1.0 GT even surface Device Used none Surface even Distance/Duration 5 Treatment Focus focus on B heel strike, B knee ext on heel strike, upward gaze from feet Neuro Re-Education Treatment Balance Activities SLS Details toe taps onto 6 cone Surface even, foam Reps/Duration x10 each leg on even and foam Comments mild-high sway but without LOB Physical Therapy Assessment Goals 2. Impairment Balance Short Term Goal (STG Pt will perform 30s SLS on each LE to improve balance ) during functional mobility SLS R 3,4,5 L 3, 1,1 02/12: Progressing, R 5, 3, 2 L 3, 3, 1 STG Duration 8 weeks Furniture Upholstery Mechanic Goal (LTG) Pt will perform 60s SLS on each LE on foam to improve balance during functional mobility LTG Duration 16 weeks 1. Impairment Strength Impairment BLE weakness with emphasis on DF, hip abd, and hip ext Short Term Goal (STG Pt will improve B DF, hip abd, and hip ext strength by ) 1 MMT score to improve function 02/12: Progressing, met in all areas except L hip abd remained 4+/5 STG Duration 8 weeks Furniture Upholstery Mechanic Goal (LTG) Pt will demonstrate improved gait 150' on even surface without AD with full foot clearance and without L hip drop 02/12: Progressing, very minimal L hip drop and x1 catch of R toes on floor LTG Duration 16 weeks Assessment Summary Assessment Focus this session on gait training and B hip abd strength, pt tolerated well but with difficulty maintaining B heel strike and B knee ext on heel strike Physical Therapy Plan Frequency and Duration Frequency of 1-2x/wk Treatment Duration of 16 treatment (weeks) Plan of Care Start 12/04/24 Date Plan of Care End 03/26/25 Date Therapeutic Interventions Therapeutic Balance Training,Gait Training,Home Exercise Program, Interventions Manual Therapy,Neuromuscular Re-education,Patient/ Caregiver Education,Soft Tissue Mobilization, Therapeutic Activities,Therapeutic Exercises Modalities Cold Pack/Ice Massage,Hot Packs,Ultrasound Next Visit Focus/Plan Next Note Type Treatment Note Next Visit Plan Review gait training with heel strike with extended knee, butterfly stretch, modified SLS with HEP, continue gastroc STM
--- NOTE | 2025-03-02 12:30 | PT.OTN ---
Current Diagnoses Foot drop, unspecified foot (03/02/25) Unspecified abnormalities of gait and mobility (03/02/25) Physical Therapy Treatment Note PT OP: Lower Back/Lower Extremity Start: 02/17/25 10:02 Freq: Status: Active Protocol: Document 03/02/25 10:48 AB (Rec: 03/02/25 12:12 AB [id number]) Out-Patient Physical Therapy Visit Information Visit Information Visit Type Treatment Note Visit Note [id number] Visit Start Time 10:48 Visit Stop Time 11:32 Visit Number 12 Number of ORACLE R12 DEVELOPER Visits 1 Progress Note Due 03/14/25 OP-PT Subjective Patient Comments Patient Comments Patient reports he is about the same compared to last session. Patient mentions he was reading about flat feet and wanted to make us aware he has flat feet, also reports he had a surgery done on his ankles that was supposted to help with that. SLS R LE 3 sec pre glute med activation, 4 sec post glute med activation. Therapeutic Exercises Supine Exercises butterfly stretch Side bilateral Reps/Minutes 60 sec X 2 Comments verbal and tactile cues Standing Exercises glute med isometric Standing Exercise HEP Name Side bilateral Reps/Minutes one min each LE Comments Verbal and visual cues Gastroc Stretch Standing Exercise Jimmy and soleus on IGNACIO Name Side bilateral Comments 60 sec knees straight then bent X 2 post manual Manual Therapy Treatment Consent Patient gave verbal Yes consent for manual treatment Soft Tissue Mobilization R calf Mobilization Type Cross-Friction,Instrument Assisted,Rolling Intensity/Depth Moderate Body Position Prone Comments PF DF X 15 with cups on gastroc, standing - soleus, prone with knee flexed Neuro Re-Education Treatment Balance Activities 1/2 foam roller Details flat side up Reps/Duration 2 min Comments with and without UE use CGA tandem stepping Reps/Duration 12 feet X 6 Comments focus on landing on heel with knee straight SLS Details 1. SLS HEP Reps/Duration 1. 3 min Comments 1. VC and visual cues initiate with hands on counter, stand on one leg lift hands off counter, with LOB put foot and or hands down Foam Details foam to step up tap on 6 inch step Reps/Duration X10 Comments CGA Physical Therapy Assessment Goals 2. Impairment Balance Short Term Goal (STG Pt will perform 30s SLS on each LE to improve balance ) during functional mobility SLS R 3,4,5 L 3, 1,1 02/12: Progressing, R 5, 3, 2 L 3, 3, 1 STG Duration 8 weeks Chief Radiology Goal (LTG) Pt will perform 60s SLS on each LE on foam to improve balance during functional mobility LTG Duration 16 weeks 1. Impairment Strength Impairment BLE weakness with emphasis on DF, hip abd, and hip ext Short Term Goal (STG Pt will improve B DF, hip abd, and hip ext strength by ) 1 MMT score to improve function 02/12: Progressing, met in all areas except L hip abd remained 4+/5 STG Duration 8 weeks Chief Radiology Goal (LTG) Pt will demonstrate improved gait 150' on even surface without AD with full foot clearance and without L hip drop 02/12: Progressing, very minimal L hip drop and x1 catch of R toes on floor LTG Duration 16 weeks Assessment Summary Assessment SLS R LE continues to be limited. VC for heel strike and knee straight ambulation between activities and inc foc on heel strike knee straight with tandem stepping. Physical Therapy Plan Frequency and Duration Frequency of 1-2x/wk Treatment Duration of 16 treatment (weeks) Plan of Care Start 12/04/24 Date Plan of Care End 03/26/25 Date Next Visit Focus/Plan Next Note Type Treatment Note Next Visit Plan Review gait training with heel strike with extended knee, butterfly stretch, continue gastroc STM
--- NOTE | 2025-03-09 15:28 | PT.OTN ---
Current Diagnoses Foot drop, unspecified foot (03/09/25) Unspecified abnormalities of gait and mobility (03/09/25) Physical Therapy Treatment Note PT OP: Lower Back/Lower Extremity Start: 02/17/25 10:02 Freq: Status: Active Protocol: Document 03/09/25 15:28 HEALTH OUTCOMES LIAISON (Rec: 03/09/25 16:20 HEALTH OUTCOMES LIAISON Laptop) Out-Patient Physical Therapy Visit Information Visit Information Visit Type Progress Note Visit Start Time 15:26 Visit Stop Time 16:05 Visit Number 13 Number of MANUFACTURING PLANT TECHNICIAN Visits 0 Progress Note Due 04/08/25 OP-PT Subjective Patient Comments Patient Comments Pt states he hasn't been doing his HEP daily but only a few times a week, feels he has made good progress overall but hasn't progressed in awhile and is happy with the level he's achieved. Therapeutic Exercises Sidelying Exercises SLR Side left Reps/Minutes 10x2 Comments VC to keep LE behind vs in front of him Clamshells Side bilateral Resistance gravity Reps/Minutes x15 Sitting Exercises seated hip abd with band Side bilateral Resistance L4 TB Reps/Minutes 1 min Comments prior to balance Standing Exercises Gastroc Stretch Standing Exercise Jimmy and soleus on 4 step with B HRs Name Side bilateral Reps/Minutes 1 min each Neuro Re-Education Treatment Balance Activities SLS Comments R SLS even: 1s, 6s, 4s L SLS even: 2s, 2s, 3s R modified SLS with toe taps: 60s L modified SLS with toe taps: 60s Physical Therapy Assessment Goals 2. Impairment Balance Short Term Goal (STG Pt will perform 30s SLS on each LE to improve balance ) during functional mobility SLS R 3,4,5 L 3, 1,1 02/12: Progressing, R 5, 3, 2 L 3, 3, 1 03/09: R: 1s, 6s, 4s, L: 2s, 2s, 3s STG Duration 8 weeks Chemist Assistant Goal (LTG) Pt will perform 60s SLS on each LE on foam to improve balance during functional mobility LTG Duration 16 weeks 1. Impairment Strength Impairment BLE weakness with emphasis on DF, hip abd, and hip ext Short Term Goal (STG Pt will improve B DF, hip abd, and hip ext strength by ) 1 MMT score to improve function 02/12: Progressing, met in all areas except L hip abd remained 4+/5 03/09: MET L hip hip 5/5 STG Duration 8 weeks MET Assisted Goal (LTG) Pt will demonstrate improved gait 150' on even surface without AD with full foot clearance and without L hip drop 02/12: Progressing, very minimal L hip drop and x1 catch of R toes on floor 03/09: MET, without BLE gait impairment LTG Duration 16 weeks MET Assessment Summary Assessment Pt has progressed to meet L hip abd strength goal and improved gait to meet goal without impairment however pt has not made progress towards balance via SLS. However states he feels great about the level he has achieved and would like to have 1 more session to condense HEP and D/C, stating he does not feel like balance affects his day to day life. Physical Therapy Plan Frequency and Duration Frequency of 1-2x/wk Treatment Duration of 16 treatment (weeks) Plan of Care Start 12/04/24 Date Plan of Care End 03/26/25 Date Next Visit Focus/Plan Next Note Type Discharge Summary Next Visit Plan condense HEP
--- NOTE | 2025-03-23 16:16 | PT.OPDS ---
Current Diagnoses Foot drop, unspecified foot (03/23/25) Unspecified abnormalities of gait and mobility (03/23/25) Visit Care Team Role Provider Type Jazmyn Pulido DO Attending Provider Physician Family Provider Primary Care Provider Referring Provider Specialty: Medical Address: [address] [place] [address], [address], [place], [address] Email: [email or web address] Visit Number Visit Number 14 Discharge Summary PT OP: Lower Back/Lower Extremity Start: 02/17/25 10:02 Freq: Status: Active Protocol: Document 03/23/25 10:51 NETWORK PRICING CONSULTANT (Rec: 03/23/25 11:40 NETWORK PRICING CONSULTANT Laptop) Out-Patient Physical Therapy Visit Information Visit Information Visit Type Discharge Summary Visit Start Time 10:52 Visit Stop Time 11:39 Visit Number 14 Number of LIMOUSINE RENTAL CLERK Visits 0 OP-PT Subjective Patient Comments Patient Comments Pt reports no changes, no pain, is ready for D/C. Brought HEP to session today to review. Therapeutic Exercises Sitting Exercises seated hip abd with band Sitting Exercise Hold then reps, HEP review Name Side bilateral Resistance L4 TB Reps/Minutes 1 min hold, x15 reps Comments prior to balance Standing Exercises glute med isometric Standing Exercise HEP review Name Side bilateral Reps/Minutes one min each LE Comments prior to balance, VC to reduce hip flexion Other Exercises HEP Other Exercise Name HEP review and consolidation Reps/Minutes 37 mins Comments new HEP HO given, all exercises reviewed, questions answered. Neuro Re-Education Treatment Balance Activities SLS Comments R SLS even: 5s, 7s L SLS even: 7s, 17s with slight intermitt support on opp leg R SLS on foam: 2s, 4s L SLS on foam: 1s, 6s Physical Therapy Assessment Goals 2. Impairment Balance Short Term Goal (STG Pt will perform 30s SLS on each LE to improve balance ) during functional mobility SLS R 3,4,5 L 3, 1,1 02/12: Progressing, R 5, 3, 2 L 3, 3, 1 03/09: R: 1s, 6s, 4s, L: 2s, 2s, 3s 03/23: NOT MET, R: 5s, 7s; L: 7s, 17s STG Duration 8 weeks NOT MET Snf Goal (LTG) Pt will perform 60s SLS on each LE on foam to improve balance during functional mobility 03/23: NOT MET, R: 2s, 4s; L: 1s, 6s LTG Duration 16 weeks NOT MET 1. Impairment Strength Impairment BLE weakness with emphasis on DF, hip abd, and hip ext Short Term Goal (STG Pt will improve B DF, hip abd, and hip ext strength by ) 1 MMT score to improve function 02/12: Progressing, met in all areas except L hip abd remained 4+/5 03/09: MET L hip hip 5/5 STG Duration 8 weeks MET Snf Goal (LTG) Pt will demonstrate improved gait 150' on even surface without AD with full foot clearance and without L hip drop 02/12: Progressing, very minimal L hip drop and x1 catch of R toes on floor 03/09: MET, without BLE gait impairment LTG Duration 16 weeks MET Assessment Summary Assessment Pt met all goals except for balance in which he will continue progressing ind at home as part of HEP. Pt has made improvements towards BLE strength and gait without dragging of LLE, is happy with improvements made and current status and focused this session on condensing HEP to maintain progress and continue improving ind at home. D/C PT Physical Therapy Plan Frequency and Duration Frequency of 1-2x/wk Treatment Duration of 16 treatment (weeks) Plan of Care Start 12/04/24 Date Plan of Care End 03/26/25 Date Discharge Physical Therapy Discharge Reasons Patient Request Discharge Comments See Assessment, D/C PT
== END 2025-03-24 13:42 | disposition home or self-care (01) ==
LOC: PHYS 10:45
PROVIDERS: Family Provider Family Medicine; PCP Family Medicine; Referring Provider Family Medicine; Visit Provider Family Medicine
DX: M21.379 Foot drop, unspecified foot (principal); R26.9 Unspecified abnormalities of gait and mobility
CPT/HCPCS: 97110; 97112; 97116; 97140

== ENCOUNTER → 2025-06-16 08:23 | Outpatient (CLI) | payer MEDICARE, OTHER, SELFPAY ==
[2025-06-16 09:27] LABS: Add Manual Diff / Slide Review NO; Hematocrit 44.9 % (41-53); Hemoglobin 15.5 g/dL (13.5-17.5); Lymphocytes Absolute Auto 2100 /uL (1100-4500); Mean Corpuscular HGB Conc 34.5 % (30-36); Mean Corpuscular Hemoglobin 30.0 PG (26-34); Mean Corpuscular Volume 87.0 fL (80-100); Platelet Count 225 X10^3/uL (150-400)
[2025-06-16 09:57] LABS: Alanine Aminotransferase 21 IU/L (<50); Albumin 4.4 g/dL (3.5-5.0); Albumin Globulin Ratio 1.6 (1.0-2.8); Alkaline Phosphatase 72 U/L (38-126); Blood Urea Nitrogen 21 mg/dL (9-20); Calcium 9.1 mg/dL (8.4-10.2); Carbon Dioxide 28 mmol/L (22-32); Chloride 105 mmol/L (98-107); Estimated Glomerular Filt Rate > 60 mL/min (>60); Globulin 2.7 g/dL (1.7-4.1); Glucose 91 mg/dL (70-99); HEMOLYSIS < 15 (0-50); Potassium 4.5 mmol/L (3.4-5.1); Sodium 142 mmol/L (137-145); Total Protein 7.1 g/dL (6.3-8.2)
[2025-06-16 10:23] LABS: Prostate Specific Antigen 3.13 ng/mL (0.10-4.00)
== END ==
PROVIDERS: PCP Family Medicine; Referring Provider Family Medicine; Visit Provider Internal Medicine Hematology & Oncology
DX: C61 Malignant neoplasm of prostate (principal)
CPT/HCPCS: 36415; 80053; 84153; 85025